=== PATIENT | male | born 1945 | race Caucasian/White ===

== ENCOUNTER 2019-08-12 09:41 | Inpatient (IN) | payer OTHER ==
[~2019-08-12] VITALS: Ht 170.2 cm; Wt 80.5 kg
[2019-08-12] MEDS ORDERED: SODIUM CHLORIDE 0.9% 1,000 ML IV ONE ×2 (10:23)
[2019-08-12 11:26] LABS: Basophils # (auto) 0.1 uL; Eosinophils # (auto) 0.1 uL; Lymphocytes # (auto) 0.6 uL; Monocytes # (auto) 0.6 uL; Neutrophils # (auto) 4.4 uL
[2019-08-12 11:29] LABS: Basophils % (auto) 1.2 % (0.0-2.0); Eosinophils % (auto) 1.4 % (0.0-7.0); Hematocrit 17.6 % (41.0-53.0); Lymphocytes % (auto) 10.5 % (10.0-50.0); Mean Corpuscular Hemoglobin 34.3 pg (28.0-32.0); Mean Corpuscular Hgb Conc. 33.9 g/dL (32.0-36.0); Mean Corpuscular Volume 101.3 fL (80.0-100.0); Monocytes % (auto) 10.8 % (0.0-12.0); Neutrophils % (auto) 76.1 % (37.0-80.0); Nucleated Red Blood Cells % 0.1 %; Platelet Count (auto) 239 10^3/uL (140-450); Red Blood Cells 1.74 10^6/uL (4.5-5.90); Red Cell Distribution Width 19.3 % (11.8-14.3); White Blood Cell 5.7 10^3/uL (4.4-10.8)
[2019-08-12] MEDS ORDERED: PIPERACILLIN-TAZOB 3.375GM 100 ML IV ONE (11:30)
[2019-08-12 11:44] LABS: Albumin 3.2 g/dL (3.4-5.0); Anion Gap 9 (5-15); Blood Urea Nitrogen 35 mg/dL (7-18); Calcium 8.8 mg/dL (8.5-10.1); Carbon Dioxide 24 mmol/L (21-32); Chloride 105 mmol/L (98-107); Glucose 91 mg/dL (74-106); Potassium 3.5 mmol/L (3.5-5.1); Sodium 138 mmol/L (136-145)
[2019-08-12 11:49] LABS: Alanine Aminotransferase 35 U/L (16-61); Alkaline Phosphatase 64 U/L (45-117); Aspartate Aminotransferase 245 U/L (15-37); BUN/Creatinine Ratio 21.9; GFR African American 55 mL/min; GFR Non-African American 46 mL/min; INR 1.15 (0.9-1.15); Partial Thromboplastin Time 25.5 sec (23.64-32.05); Total Protein 6.9 g/dL (6.4-8.2)
[2019-08-12 15:17] LABS: Urine Bacteria NONE SEEN /hpf (None Seen); Urine Blood 3+ /uL (Negative); Urine Mucus FEW (None Seen); Urine Specific Gravity 1.019 (1.001-1.035); Urine WBC 6 /hpf (0 - 3)
[2019-08-12] MEDS ORDERED: NITROGLYCERIN 0.4 MG SL TAB SL PRN (15:45)
[2019-08-12] MEDS ORDERED: SODIUM CHLORIDE 0.9% 2,000 ML IV ONE (15:45)
[2019-08-12] MEDS ORDERED: hydrALAZINE HCL 20 MG/ML VL IV PRN (15:45)
[2019-08-12] MEDS ORDERED: PROMETHAZINE HCL 25 MG/ML 1ML IV PRN (15:45)
[2019-08-12] MEDS ORDERED: MORPHINE SULF INJ 2 MG/ML SYRINGE 1ML IV PRN (15:45)
[2019-08-12 17:01] LABS: Phosphorus 4.6 mg/dL (2.5-4.90); Uric Acid 7.4 mg/dL (3.5-7.2)
[2019-08-12 17:03] LABS: Protein, Urine 148.8 mg/dL (0.0-11.9)
[2019-08-12 20:45] VITALS: BP 99/39
[2019-08-12 21:03] VITALS: BP 103/50
[2019-08-12 21:35] VITALS: BP 106/55
[2019-08-12 22:07] VITALS: BP 109/54
[2019-08-12] MEDS: metroNIDAZOLE 500MG/100ML 100 ML IV SCH (22:57)
[2019-08-12 23:25] LABS: Hematocrit 18.9 % (41.0-53.0)
[2019-08-12 23:51] LABS: Hemoglobin 6.4 g/dL (13.5-17.5)
[2019-08-13] VITALS (9 sets, daily range): BP systolic 96–123; BP diastolic 49–66
--- NOTE | 2019-08-13 01:40 | NUR ---
Admit to [facility] KACIEKIKO admitted to [facility] via gurney on monitor worker, and portable 02. Patient transferred to bed, connected to unit monitoring and oxygen, and weighed by bedscale, but bedscale is not functioning at this time. Patient oriented to Rubi Kaiser, primary RN, unit, room, bed, and unit policies regarding patient care and visiting hours. All questions and concerns addressed, patient verbalized understanding. Pt states has more information and can answer history questions in AM. Will continue to monitor.
--- NOTE | 2019-08-13 04:20 | NUR ---
PRBC transfusing. VS stable.
[2019-08-13] MEDS: MORPHINE SULF INJ 2 MG/ML SYRINGE 1ML IV PRN ×2 (04:24→21:22)
--- NOTE | 2019-08-13 04:35 | NUR ---
Blood transfusing. Pt tolerating well, no reactions at this time. VS stable.
--- NOTE | 2019-08-13 05:00 | NUR ---
SCD's applied. Pt states leg pain. Morphine 2mg IV given as ordered for prn pain. Will continue to monitor.
[2019-08-13] MEDS: metroNIDAZOLE 500MG/100ML 100 ML IV SCH ×3 (07:58→22:06)
[2019-08-13] MEDS ORDERED: SIMV-13 PO (08:20)
--- NOTE | 2019-08-13 08:30 | NUR ---
NEUROLOGIST DR. RAMSAY AT BEDSIDE. NO NEW ORDERS.
[2019-08-13 09:28] LABS: Basophils # (auto) 0 uL; Eosinophils # (auto) 0.1 uL; Lymphocytes # (auto) 0.6 uL; Monocytes # (auto) 0.4 uL; Monocytes % (auto) 10.6 % (0.0-12.0); Neutrophils # (auto) 2.7 uL; Nucleated Red Blood Cells % 0.1 %
[2019-08-13 09:32] LABS: Basophils % (auto) 1.3 % (0.0-2.0); Eosinophils % (auto) 2.1 % (0.0-7.0); Hematocrit 19.9 % (41.0-53.0); Lymphocytes % (auto) 16.4 % (10.0-50.0); Mean Corpuscular Hemoglobin 32.7 pg (28.0-32.0); Mean Corpuscular Hgb Conc. 34.1 g/dL (32.0-36.0); Mean Corpuscular Volume 96.1 fL (80.0-100.0); Neutrophils % (auto) 69.6 % (37.0-80.0); Platelet Count (auto) 209 10^3/uL (140-450); Red Blood Cells 2.07 10^6/uL (4.5-5.90); Red Cell Distribution Width 18.9 % (11.8-14.3); White Blood Cell 3.9 10^3/uL (4.4-10.8)
[2019-08-13 09:35] LABS: Hemoglobin 6.8 g/dL (13.5-17.5)
[2019-08-13 09:42] LABS: Albumin 2.8 g/dL (3.4-5.0); Calcium 8.2 mg/dL (8.5-10.1); Potassium 3.5 mmol/L (3.5-5.1)
[2019-08-13 09:45] LABS: BUN/Creatinine Ratio 20.6; Bilirubin, Total 2.5 mg/dL (0.2-1.0); Total Protein 6.2 g/dL (6.4-8.2)
--- NOTE | 2019-08-13 09:45 | NUR ---
ORTHOPEDIC DR. RAMSAY AT BEDSIDE. NO NEW ORDERS.
--- NOTE | 2019-08-13 09:50 | NUR ---
LSW AT BEDSIDE. DR. LUNA UPDATED ON PATIENTS STATUS. SEE NEW ORDERS. 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 MD AWARE OF HBG OF 6.8.
--- NOTE | 2019-08-13 09:51 | NUR ---
ACTIVITY PATIENT ASSISTED OOB TO CHAIR INDEPENDENTLY. AT BEDSIDE UPDATED ON PATIENT STATUS, QUESTIONS AND CONCERNS ADDRESSED.
[2019-08-13] MEDS: PANTOPRAZOLE 40 MG/10 ML VIAL INJ IV SCH (10:10)
[2019-08-13] MEDS: levoFLOXacin 500MG 100 ML IV SCH (10:10)
[2019-08-13] MEDS ORDERED: CELE100C82 PO (10:36)
--- NOTE | 2019-08-13 12:12 | NUR ---
SALES SERVICE PROFESSIONAL PAGED PAGED TO NOTIFY OF CURRENT HBG. AWAITING CALLBACK
--- NOTE | 2019-08-13 13:41 | NUR ---
ICE CHIPS TOLERATED PATIENT SITTING UP IN CHAIR, PATIENT ASKING IF HE CAN HAVE WATER OR ICE CHIPS. MD AGREED TO ICE CHIPS IF TOLERATED WELL. MD EXPLAINED POSSIBILITY OF ASPIRATION, PATIENT AND AT BEDSIDE VERBALIZED UNDERSTANDING. PATIENT ATE ICE WITHOUT DIFFICULT. WILL CONTINUE TO MONITOR WITH ASPIRATION PRECAUTIONS. SWALLOW EVAL PENDING.
--- NOTE | 2019-08-13 13:41 | NUR ---
MD ROUNDS DR. RAMSEY AT BEDSIDE. MD SPOKE TO PATIENT AND AT BEDSIDE. QUESTIONS AND CONCERNS ADDRESSED. SEE MD ORDERS. OK TO DOWNGRADE TO TELE IF OK WITH DR. ARIAS.
--- NOTE | 2019-08-13 14:00 | NUR ---
PLATE GRINDER GAURANG ALY AT BEDSIDE. PA UPDATED PATIENT AND AT BEDSIDE RE: PATIENTS STATUS, QUESTIONS AND CONCERNS ADDRESSED. CLARIFIED WITH PA OF HBG OF 6.8. PA STATED" IF PATIENT IS STABLE NO NEED FOR BLOOD AT THIS TIME". PT VSS, NO DISTRESS NOTED. DR. RAMSEY AWARE OF RESPONSE. PER P.A, OK TO DOWNGRADE TO TELE. PER PA OK TO TRY SIPS OF WATER, PT TOLERATED WATER. JELLO REQUESTED BY PATIENT AND AGAIN TOLERATED WELL. LIQUIDS TO BE GIVEN AT THIS TIME. PENDING HIDA/ MRCP IN A.M. PT TO BE NPO AFTER MIDNIGHT FOR PROCEDURES.
--- NOTE | 2019-08-13 14:33 | NUR ---
PATIENT AND PA ATTENDING REPORT PATIENT IS NOT HAVING DIFFICULTY SWALLOWING. ESOPHAGEAL MUSCLE DIFFICULTY BUT NOT SWALLOW. NO SWALLOW EVALUATION TOOK PLACE.
[2019-08-13] MEDS: SODIUM CHLORIDE 0.9% 1,000 ML IV SCH (15:10)
--- NOTE | 2019-08-13 17:24 | NUR ---
DOWNGRADE BED 285ATANNA Addendum: 08/13/19 at 1726 by Julisa Cheung RN UNABLE TO REACH NOK , NO ANSWER UNABLE TO LEAVE MSG.
--- NOTE | 2019-08-13 17:58 | NUR ---
REPORT SAIMA UPDATED ON PLAN OF CARE AND PATIENTS CURRENT CONDITION. RN AWARE PATIENT IS TO BE NPO AFTER MIDNIGHT. QUESTIONS AND CONCERNS ADDRESSED, PT TRANSFERRED VIA W/C ON TELE MONITOR. VSS.
--- NOTE | 2019-08-13 18:00 | NUR ---
Transfer from [facility] to telemetry Report received from [facility] RN Ghada. Patient arrived, no s/s of distress. Patient is ambulatory and went to the restroom independently and safely. Patient POC discussed with patient. Patient oriented to room and visiting hours. Bed is in lowest, locked position, call light within reach. BP 111/57, HR 75 and SR on tele monitor #54, RR 16, O2 97 %. Patient able to drink water and jello without swallowing difficulty. Patient is on clear liquid diet. Will continue to monitor.
--- NOTE | 2019-08-13 19:40 | NUR ---
Opening Shift Note Assumed care of patient, awake, AAOx4. No S/S of distress/SOB. On room air and bedrest. C/O chronic pain to bilateral legs 12/05. Pale skin tone noted. Patient asymptomatic. Bed in lowest locked position, side rails up x2, call light within reach. Instructed on POC and to call for assist PRN, will continue to monitor for changes Q1hr and PRN.
[2019-08-14] VITALS (8 sets, daily range): BP systolic 112–133; BP diastolic 57–74
--- NOTE | 2019-08-14 | NUR ---
PATIENT NPO SINCE MIDNIGHT FOR PROCEDURE THIS MORNING
[2019-08-14] MEDS: SODIUM CHLORIDE 0.9% 1,000 ML IV SCH ×2 (00:15→11:31)
[2019-08-14] MEDS: metroNIDAZOLE 500MG/100ML 100 ML IV SCH ×3 (06:09→20:31)
[2019-08-14 06:19] LABS: Potassium 3.5 mmol/L (3.5-5.1)
[2019-08-14 06:28] LABS: Albumin 2.7 g/dL (3.4-5.0); BUN/Creatinine Ratio 15.9; Bilirubin, Total 1.8 mg/dL (0.2-1.0); Calcium 7.8 mg/dL (8.5-10.1); Total Protein 5.9 g/dL (6.4-8.2)
--- NOTE | 2019-08-14 07:31 | NUR ---
Opening Shift Note Assumed care of patient, awake, AAOx4. No S/S of distress/SOB. On room air and bedrest. Pale skin tone noted. Patient asymptomatic. VS WNL Bed in lowest locked position, side rails up x2, call light within reach. Instructed on POC and to call for assist PRN, will continue to monitor for changes Q1hr and PRN.
--- NOTE | 2019-08-14 07:35 | NUR ---
CALLED PRE-OP RE: PT SCHEDULE FOR PROCEDURE. ACCORDING TO COREY CISSE, PT IS NOT ON THE SCEDULE FOR ANY PROCEDURE TODAY. WILL FOLLOW UP WITH
[2019-08-14] MEDS ORDERED: MORPHINE SULF INJ 2 MG/ML SYRINGE 1ML IV ONE (08:00)
[2019-08-14] MEDS ORDERED: READI-CAT 2 (BARIUM SULF)(VANILLA SMOOTHIE) 450ML ONE (09:23)
[2019-08-14] MEDS ORDERED: EZ PAQUE SUSP 12OZ BTL ONE (09:23)
[2019-08-14] MEDS ORDERED: BARIUM SULFATE 98% 340 GM PWDR ONE (09:25)
--- NOTE | 2019-08-14 09:37 | NUR ---
TECH AREA CONTACT ACCORDING TO X-RAY PERSONNEL PT WILL BE DOWN IN RADIOLOGY FOR THE HIDA SCAN, MRI PERSONNEL WILL THEN BRING HIM OVE FOR MRCP AND HE WILL FINSLLY GO BACK TO RADIOLOGY FOR BARIUM SWALLOW.
--- NOTE | 2019-08-14 09:39 | NUR ---
REPORT FROM GINNA CERTIFIED LACTATION COUNSELOR
[2019-08-14] MEDS: PANTOPRAZOLE 40 MG/10 ML VIAL INJ IV SCH (09:43)
[2019-08-14] MEDS: levoFLOXacin 500MG 100 ML IV SCH (10:00)
--- NOTE | 2019-08-14 10:25 | NUR ---
GEORGETTE [employer] PERSONNEL ACCORDING TO GEORGETTE PT IS UNABLE TO GO FOR MRCP TODAY DUE TO NUC MED SCAN PERFORMED EARLIER IN THE A.M DUE TO MORPHINE ADMINISTRATION. PT NEED TO NPO AFTER MIDNIGHT TONIGHT FOR MRCP TOMORROW.
[2019-08-14] MEDS ORDERED: GASTROGRAFIN 120 ML SOL ONE (10:31)
--- NOTE | 2019-08-14 11:00 | NUR ---
PT ARRIVAL BACK TO UNIT FROM RADIOLOGY
--- NOTE | 2019-08-14 13:27 | NUR ---
PT REPORTS THAT HE WALKS FINE AND DOES NOT NEED P.T.
[2019-08-14 13:33] LABS: Basophils # (auto) 0 uL; Basophils % (auto) 0.9 % (0.0-2.0); Eosinophils # (auto) 0.1 uL; Eosinophils % (auto) 2.5 % (0.0-7.0); Hematocrit 26.6 % (41.0-53.0); Hemoglobin 8.6 g/dL (13.5-17.5); Lymphocytes # (auto) 0.5 uL; Lymphocytes % (auto) 12.8 % (10.0-50.0); Mean Corpuscular Hemoglobin 32.7 pg (28.0-32.0); Mean Corpuscular Hgb Conc. 32.5 g/dL (32.0-36.0); Mean Corpuscular Volume 100.7 fL (80.0-100.0); Monocytes # (auto) 0.6 uL; Monocytes % (auto) 14.2 % (0.0-12.0); Neutrophils # (auto) 2.9 uL; Neutrophils % (auto) 69.6 % (37.0-80.0); Platelet Count (auto) 279 10^3/uL (140-450); Red Blood Cells 2.64 10^6/uL (4.5-5.90); White Blood Cell 4.1 10^3/uL (4.4-10.8)
--- NOTE | 2019-08-14 13:48 | NUR ---
ROUNDING MD GARCIA AT BEDSIDE. ACCORDING TO MD HE WILL NOT BE PERFORMING AND SURGERY AT THIS TIME DUE TO HGB LEVELS
[2019-08-14 13:55] LABS: Red Cell Distribution Width 20.1 % (11.8-14.3)
--- NOTE | 2019-08-14 16:50 | NUR ---
PAGED MD GARCIA RE: PT NEW H&H. PER HE WOULD LIKE HGB TO BE 10 AND ABOVE WITH A HCT OF 30 OR GREATER WELL IN ORDER TO PROCEED WITH SURGERY. WILL UPDATE MD RAMSEY
--- NOTE | 2019-08-14 17:04 | NUR ---
ROUNDING MD Irvin RAMSEY AT BEDSIDE. ALL QUESTIONS AND CONCERNS ADDRESSED AT THIS TIME. PER MD ARIAS AND BRAULOI PT IS OKAY TO HAVE 1UNIT OF PRBC'S AT THIS TIME WITH REPEAT H&H.
--- NOTE | 2019-08-14 19:55 | NUR ---
Opening Shift Note Assumed care of patient, awake and alert. No S/S of distress/SOB. pain to lower extremities 12/05 will medicate per protocol.. Instructed on POC and to call for assist PRN, will continue to monitor for changes Q1hr and PRN. bed in low position and call light within reach
[2019-08-14] MEDS: MORPHINE SULF INJ 2 MG/ML SYRINGE 1ML IV PRN (20:31)
--- NOTE | 2019-08-14 22:55 | NUR ---
15 MIN VS TAKEN PATIENT REPORTS NO ALLERGIC REACTION. PATIENT REPORTS NO PAIN/DISTRESS OR SOB
--- NOTE | 2019-08-14 23:34 | NUR ---
VS TAKEN PATIENT REPORTS NO ALLERGIC REACTION. PATIENT REPORTS NO PAIN/DISTRESS OR SOB/ VS TAKEN
[2019-08-15] VITALS (7 sets, daily range): BP systolic 103–126; BP diastolic 52–70
--- NOTE | 2019-08-15 | NUR ---
VS TAKEN PATIENT REPORTS NO ALLERGIC REACTION. PATIENT REPORTS NO PAIN/DISTRESS OR SOB. VS TAKEN
--- NOTE | 2019-08-15 | NUR ---
PATIENT EDUCATED ON NPO STATUS FOR MRI SCHEDULED
--- NOTE | 2019-08-15 02:00 | NUR ---
blood transfusion ended. patient tolerated well patient reports no pain/ distress or sob. vs taken
[2019-08-15] MEDS: metroNIDAZOLE 500MG/100ML 100 ML IV SCH ×3 (05:43→21:26)
--- NOTE | 2019-08-15 06:54 | NUR ---
PATIENT ROUNDS PATIENT IS IN SLEEPING SHOWS NO SIGNS OF SOB/DISTRESS OR PAIN. RR EVEN AND UNLABORED RR18.. BED IN LOW POSITION AND CALL LIGHT WITHIN REACH.
--- NOTE | 2019-08-15 06:58 | NUR ---
REPORT GIVEN TO DAYSHIFT RN PATIENT DENIES SOB/DISTRESS OR PAIN
[2019-08-15 07:09] LABS: Potassium 3.6 mmol/L (3.5-5.1)
[2019-08-15 07:17] LABS: Albumin 2.7 g/dL (3.4-5.0); BUN/Creatinine Ratio 12.9; Bilirubin, Total 1.2 mg/dL (0.2-1.0); Calcium 7.9 mg/dL (8.5-10.1); Phosphorus 4.2 mg/dL (2.5-4.90); Total Protein 5.8 g/dL (6.4-8.2)
[2019-08-15 07:18] LABS: Basophils # (auto) 0 uL; Basophils % (auto) 1.2 % (0.0-2.0); Eosinophils # (auto) 0.1 uL; Eosinophils % (auto) 3.9 % (0.0-7.0); Hematocrit 22.4 % (41.0-53.0); Hemoglobin 7.5 g/dL (13.5-17.5); Lymphocytes # (auto) 0.5 uL; Lymphocytes % (auto) 21.2 % (10.0-50.0); Mean Corpuscular Hemoglobin 33.2 pg (28.0-32.0); Mean Corpuscular Hgb Conc. 33.8 g/dL (32.0-36.0); Mean Corpuscular Volume 98.5 fL (80.0-100.0); Monocytes # (auto) 0.4 uL; Monocytes % (auto) 17.8 % (0.0-12.0); Neutrophils # (auto) 1.4 uL; Neutrophils % (auto) 55.9 % (37.0-80.0); Platelet Count (auto) 208 10^3/uL (140-450); Red Blood Cells 2.27 10^6/uL (4.5-5.90); Red Cell Distribution Width 18.8 % (11.8-14.3); White Blood Cell 2.4 10^3/uL (4.4-10.8)
--- NOTE | 2019-08-15 08:43 | NUR ---
PT BACK FROM STRESS LAB PT SITTING AT BEDSIDE IN RADIOLOGY WHEELCHAIR. WHEN ASKED IF PROCEDURE WAS DONE PT STATES " YEAH I JUST WANT TO GET INTO BED AND LAY DOWN RIGHT NOW AND I NEED A STRAW." PT TRANSFERRED TO BED BY PRIMARY RN. Addendum: 08/15/19 at 0956 by JAYCE MCKEON RN RN INCORRECT PATIENT
--- NOTE | 2019-08-15 08:45 | NUR ---
THIS RN CALLED DOWN TO STRESS LAB TO CONFIRM PROCEDURE SPOKE WITH MELINA. ACCORDING TO MELINA STRESS LAB PERSONNEL, PROCEDURE WAS INCOMPLETE DUE TO MEDICATION ADENOSINE NOT BEING AVAILABLE YET. MELINA STATES " I TOLD PATIENT THAT I WOULD BE BACK IN 15MIN SO THAT THE MEDICATION CAN BE READY, SO I LEFT IN COMFORTABLY IN THE WHEELCHAIR TO AWAIT THE MEDICATION." Addendum: 08/15/19 at 0956 by JAYCE MCKEON RN RN INCORRECT PATIENT
--- NOTE | 2019-08-15 09:42 | NUR ---
PT BROUGHT DOWN FOR MRCP
--- NOTE | 2019-08-15 10:09 | NUR ---
PT BACK TO UNIT FROM MRI
[2019-08-15] MEDS: levoFLOXacin 500MG 100 ML IV SCH (10:10)
[2019-08-15] MEDS: PANTOPRAZOLE 40 MG/10 ML VIAL INJ IV SCH (10:11)
--- NOTE | 2019-08-15 14:06 | NUR ---
NUTRITION ASSESSMENT NOTES Please refer to link notes of nutrition screen form filed under the intervention section of the plan of care for further details. Est. Energy Needs: 4122-8562 kcal (17-20 kcal/kgBW), Est. Protein Needs: 54-67 gms/day (0.8-1.0 gms/kg IBW). Will continue to monitor pertinent labs and reassess nutrient need prn Addendum: 08/15/19 at [address] Amended: Links added.
--- NOTE | 2019-08-15 16:26 | NUR ---
Assessment Pt is a 73 yr old alert and oriented male. Pt lives with his , Denia, who is his emergency contact at [phone]. Pt uses 02 PRN and has a walker but it currently ambulatory and independent with ADL's. Pt's Primary is Dr. Lomeli, has No AD, and receives [employer] income and a pension. Pt's will transport him home upon d/c. Pt will d/c home upon medical clearance. Pt is agreeable to d/c plan. No current needs assessed. Addendum: 08/15/19 at 1629 by KERA ROSS Amended: Links added.
--- NOTE | 2019-08-15 17:42 | NUR ---
MD Irvin GROSSMAN CALLED RE: UPDATE FOR PATIENT. UPDATED ON CURRENT STATUS. ALL QUESTIONS AND CONCERNS ADDRESSED AT THIS TIME
--- NOTE | 2019-08-15 19:55 | NUR ---
Opening Shift Note Assumed care of patient, awake and alert. No S/S of distress/SOB or pain. Instructed on POC and to call for assist PRN, will continue to monitor for changes Q1hr and PRN.
--- NOTE | 2019-08-15 19:55 | NUR ---
surgical consent not signed, surgeon has not talked to patient.
--- NOTE | 2019-08-15 20:25 | NUR ---
CALLED MD Rodolfo RAMSEY, SPOKE WITH LEGAL INSTRUCTOR DOCTOR JAM PROVIDED DOCTOR WITH SBAR REPORT AND INFORMED HIM OF PATIENT HGB 7.5, INFORMED JAM OF MD OLMSTEAD PROGRESS NOTE TO KEEP HGB ABOVE 10 AND HCT ABOVE 30 BEFORE SURGERY. PER DOCTOR GIVE 2 UNITS OF PRBC, FOLLOW UP WITH CBC POST TRANSFUSION, AND STRICT I/O, ORDER READ BACK AND VERIFIED.
--- NOTE | 2019-08-15 20:44 | NUR ---
SPOKED WITH MD RADER PROVIDED WITH SBAR REPORT READ MD PROGRESS NOTE TO HIM. INFORMED HIM IF HE WOULD LIKE ME TO PUT IN ORDER TO TRANSFUSE PATIENT, INFORMED MD OF HGB OF 7.5. PER MD TRANSFUSE ONE UNIT OF PRBC. ORDERS READ BACK AND VERIFIED BY .
[2019-08-15] MEDS: MORPHINE SULF INJ 2 MG/ML SYRINGE 1ML IV PRN (21:26)
[2019-08-15] MEDS: SODIUM CHLORIDE 0.9% 1,000 ML IV SCH (21:32)
--- NOTE | 2019-08-15 22:16 | NUR ---
MD Irvin RAMSEY ROUNDED ON PATIENT AND EXPLAINED POC. INFORMED MD Amaro SPOKE WITH JAM AND MD RADER PERTAINING TO HGB 7.5 AND ORDER RECEIVED FROM BOTH TO TRANSFUSE PRBC. ORDERS RECEIVED FOR HGB/HCT LAB STAT, BY MD Rodolfo RAMSEY, PER MD HE WILL CALL BACK IN AN HOUR TO SEE IF BLOOD TRANSFUSION IS REQUIRED DEPENDING OF HGB/HCT. ORDERS READ BACK AND VERIFIED
[2019-08-15 22:38] LABS: Hematocrit 23.7 % (41.0-53.0)
[2019-08-15 22:40] LABS: Hemoglobin 7.8 g/dL (13.5-17.5)
--- NOTE | 2019-08-15 22:51 | NUR ---
NO CALL FROM Rodolfo RAMSEY. CALLED , PRIMARY TEACHER JAM ANSWERED,SBAR REPORT GIVEN AND INFORMED HGB/HCT LAB VALUES AND LACTATE DEHYDROGENASE LEVELS. PER JAM ADMINISTER SOLUMEDROL 6O IV Q 8HRS INFORMED PATIENT IS ALLERGIC TO PREDNISONE. JAM STATED TO GIVE MEDICATION. TO GIVE 2 UNITS OF PRBC. ORDERS READ BACK AND VERIFIED
[2019-08-16] VITALS (12 sets, daily range): BP systolic 113–150; BP diastolic 57–79
--- NOTE | 2019-08-16 00:02 | NUR ---
SPOKE WITH PHARMACIST KRISH AT [facility]. PER PHARMACIST CAN NOT GIVE SOLUMEDROL IF PATIENT IS ALLERGIC TO PREDNISONE HE GETS EDEMATOUS AND SOB.
--- NOTE | 2019-08-16 00:51 | NUR ---
SPOKE WITH JAM PER MD HOLD MEDICATION SOLUMEDROL
--- NOTE | 2019-08-16 01:45 | NUR ---
SECOND ATTEMPT CALLING BLOOD BANK TO VERIFY IF PRBC ARE READY, NO ANSWER.
--- NOTE | 2019-08-16 03:09 | NUR ---
15MIN VS TAKEN. NO ALLERGIC REACTION NOTED OR REPORTED BY PATIENT. DENIES SOB/DISTRESS OR PAIN. PATIENT TOLERATING WELL.
--- NOTE | 2019-08-16 04:09 | NUR ---
VS TAKEN,PATIENT NANDA SOB/DISTRESS/ PAIN OR ALLERGIC REACTION. PATIENT TOLERATING WELL
--- NOTE | 2019-08-16 05:07 | NUR ---
VS TAKEN BLOOD TRANSFUSION ENDED. NO ALLERGIC REACTION NOTED. PATIENT DENIES DISTRESS SOB/ OR PAIN.
[2019-08-16] MEDS ORDERED: methylPREDNISolone SOD SUCC 125 MG/2 ML VL IV SCH (06:00)
[2019-08-16] MEDS: metroNIDAZOLE 500MG/100ML 100 ML IV SCH ×3 (06:00→22:31)
--- NOTE | 2019-08-16 06:16 | NUR ---
15 MIN VS TAKEN . NO ALLERGIC REACTION NOTED. PATIENT NANDA SOB/DISTRESS OR PAIN.
--- NOTE | 2019-08-16 07:00 | NUR ---
VS TAKEN PATIENT NANDA SOB/DISTRESS OR PAIN . NO ALLERGIC REACTION NOTED
[2019-08-16] MEDS: SODIUM CHLORIDE 0.9% 1,000 ML IV SCH (07:15)
--- NOTE | 2019-08-16 07:30 | NUR ---
Opening Shift Note Assumed care of patient, awake and alert. No S/S of distress/SOB or pain. Instructed on POC and to callfor assist PRN, will continue to monitor for changes Q1hr and PRN. NPO SINCE MIDNIGHT.
--- NOTE | 2019-08-16 08:14 | NUR ---
report given to dayshift rn patient denies sob/distress or pain. informed rn of patient currently running transfusion. patient denies sob/distress or pain
[2019-08-16] MEDS: PANTOPRAZOLE 40 MG/10 ML VIAL INJ IV SCH (10:52)
[2019-08-16] MEDS: levoFLOXacin 500MG 100 ML IV SCH (10:52)
--- NOTE | 2019-08-16 12:51 | NUR ---
1245 08/16/19 Received order to transfer to higher level of care. I called Dr. Rodolfo Maya [phone] to discuss the case-he stated patient needs cholecystectomy at higher level of care due to his PNH. I spoke with [employer]ICE Reconnaissance Crewmember Claudia regarding this order-she said to reach out to [facility], [facility], [facility], and [facility]. I faxed transfer order/clinical information to [facility].
--- NOTE | 2019-08-16 14:22 | NUR ---
I received a call from Patsy at [facility] Transfer Center [phone] option [phone] letting me know that they are at capacity, they have no beds available today-to check back tomorrow.
--- NOTE | 2019-08-16 14:58 | NUR ---
I called [facility] Transfer [facility] [phone] and spoke with Zya regarding the need to transfer this patient to higher level of care-provided him with contact information for Dr. Rodolfo Maya as well as the nurse's station. Faxed clinical information /order to [phone]. Per Zay, no available beds at this time.
--- NOTE | 2019-08-16 15:24 | NUR ---
1520 08/16/19 I called [facility] [phone] and spoke with Aruna in bed control, she said they have no beds available right now, but the accepting MD for today is Dr. Aguila [phone]-I forwarded this information to [employer] Claudia-she will let Dr. Rodolfo Maya know. Faxed transfer order/clinical information to [facility] [phone].
--- NOTE | 2019-08-16 15:54 | NUR ---
I spoke with CHOICE Supervisor [employer] Claudia, she provided me with [facility] auth number [id number].
--- NOTE | 2019-08-16 16:19 | NUR ---
Faxed transfer order/clinical information to [facility].
--- NOTE | 2019-08-16 16:41 | NUR ---
I called [facility] (spoke with Ave [phone]) and placed them on will call pending transfer to higher level of care ([facility] auth number from Claudia at [facility] is [id number]. I spoke with nurse Tamayo and updated her on the status of the transfer-I let her know that [facility] is on will call.
[2019-08-16 17:32] LABS: Hematocrit 29.9 % (41.0-53.0); Hemoglobin 9.9 g/dL (13.5-17.5)
--- NOTE | 2019-08-16 19:30 | NUR ---
CLOSING Patient awake and alert. No S/S of distress/SOB or pain. PT AND HIS ARE AWARE OF THE PLAN TO TRANSFER TO HIGHER LEVEL OF CARE.
[2019-08-16] MEDS: MORPHINE SULF INJ 2 MG/ML SYRINGE 1ML IV PRN (20:49)
[2019-08-17 05:00] VITALS: BP 114/69
[2019-08-17] MEDS: metroNIDAZOLE 500MG/100ML 100 ML IV SCH ×3 (06:10→21:57)
--- NOTE | 2019-08-17 07:35 | NUR ---
Opening Shift Note Assumed care of patient. Patient is awake and alert. No S/S of distress/SOB, no pain noted or reported. Instructed on POC and to call for assist PRN, patient verbalized understanding. Bed locked in lowest position, side rails up x2, call light within reach. Will continue to monitor for changes Q1hr and PRN.
[2019-08-17 09:00] VITALS: BP 112/88
--- NOTE | 2019-08-17 10:36 | NUR ---
I called [facility] Transfer Center and spoke with Ron, he said they have no tele beds available at this time. I called [facility] Transfer Center and spoke with Sierra, re-faxed clinical information/transfer order per her request-they will review it and let me know if they are able to accept this patient.
[2019-08-17] MEDS: SODIUM CHLORIDE 0.9% 1,000 ML IV SCH ×2 (10:45→20:45)
[2019-08-17] MEDS: PANTOPRAZOLE 40 MG/10 ML VIAL INJ IV SCH (10:57)
[2019-08-17] MEDS: levoFLOXacin 500MG 100 ML IV SCH (10:57)
--- NOTE | 2019-08-17 11:35 | NUR ---
DR. Irvin RAMSEY AT BEDSIDE Addendum: 08/17/19 at 1136 by Jodie Estrada RN CORRECT TIME WAS 1110
[2019-08-17 13:00] VITALS: BP 136/65
--- NOTE | 2019-08-17 13:15 | NUR ---
IV removal IV DC'd with clean sterile technique, catheter fully intact. Pressure dressing applied to site. Patient tolerated well. NOTE: IV LEAKING
--- NOTE | 2019-08-17 13:30 | NUR ---
IV insertion IV access obtained, via clean sterile technique by inserting 22 gauge catheter at left hand after 1 attempt. IV secured properly. No trauma to site. Patient tolerated well.
--- NOTE | 2019-08-17 13:59 | NUR ---
I received a call from Alivia at [facility] transfer center letting me know that they have no beds available at this time.
--- NOTE | 2019-08-17 14:17 | NUR ---
1415 08/17/19 Contacted [facility] Transfer Center [phone] and spoke with Flaquito regarding the need to transfer to higher level of care. Provided him with contact information for Dr. Rodolfo Maya as well as the nurse's station. Faxed requested clinical documentation to [phone].
--- NOTE | 2019-08-17 14:30 | NUR ---
1430 08/17/19 I contacted the [facility] ([phone]) and spoke with Kiya Leiva regarding the need to transfer this patient to higher level of care. Per Kiya Leiva, they are at capacity and not able to accept any transfers at this time-she said to try back tomorrow.
--- NOTE | 2019-08-17 16:26 | NUR ---
1620 08/17/19 I received a message from Sierra at the [facility] Transfer Center letting me know that their surgeon Dr. Noguera is not accepting patient at this time-that patient can follow up with them as an outpatient.
[2019-08-17 17:08] VITALS: BP 141/75
--- NOTE | 2019-08-17 18:02 | NUR ---
RECEIVED A MESSAGE TO CONTACT EDIL WITH [facility] TRANSFER [facility] AT [phone]. LEFT MESSAGE FOR EDIL TO RETURN CALL.
--- NOTE | 2019-08-17 20:06 | NUR ---
RECEIVED PATIENT FROM DAY SHIFT RN. PATIENT RESTING IN BED. NO S/S OF DISTRESS NOTED. C/O PAIN @ 12/05. NO REQUEST FOR PAIN MEDICATION NOW. PATIENT UNDERSTOOD THE SCHEDULE OF PAIN MANAGEMENT, WILL CALL IF NEEDED. BED IN LOWEST POSITION WITH SIDE RAILS UP X 2. CALL GOMEZ WITHIN REACH. ALARM ON. CONTINUE TO MONITOR FOR CHANGES Q1H AND PRN.
[2019-08-17] MEDS: MORPHINE SULF INJ 2 MG/ML SYRINGE 1ML IV PRN (21:58)
--- NOTE | 2019-08-17 22:03 | NUR ---
MEDICATED PATIENT FOR PAIN @ 12/05 ORDERED. CONTINUE TO MONITOR.
[2019-08-18] MEDS: SODIUM CHLORIDE 0.9% 1,000 ML IV SCH ×2 (04:41→18:13)
[2019-08-18] MEDS: MORPHINE SULF INJ 2 MG/ML SYRINGE 1ML IV PRN ×2 (04:41→22:52)
[2019-08-18 05:00] VITALS: BP 132/69
[2019-08-18] MEDS: metroNIDAZOLE 500MG/100ML 100 ML IV SCH ×3 (06:01→22:41)
[2019-08-18 06:45] LABS: Basophils # (auto) 0 uL; Basophils % (auto) 0.7 % (0.0-2.0); Eosinophils # (auto) 0.1 uL; Eosinophils % (auto) 3.8 % (0.0-7.0); Hematocrit 28.3 % (41.0-53.0); Hemoglobin 9.7 g/dL (13.5-17.5); Lymphocytes # (auto) 0.5 uL; Mean Corpuscular Hemoglobin 32.8 pg (28.0-32.0); Mean Corpuscular Hgb Conc. 34.2 g/dL (32.0-36.0); Mean Corpuscular Volume 95.9 fL (80.0-100.0); Monocytes # (auto) 0.5 uL; Monocytes % (auto) 16.2 % (0.0-12.0); Neutrophils # (auto) 1.7 uL; Neutrophils % (auto) 60.3 % (37.0-80.0); Nucleated Red Blood Cells % 0.2 %; Platelet Count (auto) 168 10^3/uL (140-450); Red Blood Cells 2.95 10^6/uL (4.5-5.90); Red Cell Distribution Width 17.3 % (11.8-14.3); White Blood Cell 2.9 10^3/uL (4.4-10.8)
[2019-08-18 06:57] LABS: Calcium 7.9 mg/dL (8.5-10.1); Potassium 3.3 mmol/L (3.5-5.1)
--- NOTE | 2019-08-18 08:00 | NUR ---
Opening Shift Note Assumed care of patient, awake, alert and oriented X4. No S/S of distress/SOB or pain. O2 @ 2 LPM via nasal cannula with sats @ 99%. Tele# 54, sinus rhythm @ 76 bpm. IV to left hand, 22 gauge, patent and infusing 0.9% NS @ 100 ml/hr. Instructed on POC and to call for assist PRN, verbalized understanding. Bed locked, in lowest position, call light within reach, will continue to monitor for changes Q1hr and PRN.
--- NOTE | 2019-08-18 08:43 | NUR ---
I called [facility] Transfer Center [phone] and spoke with Karina, no beds available at this time.
--- NOTE | 2019-08-18 08:53 | NUR ---
I called the [facility] ([facility])[phone] and spoke with Eryn, provided her with contact information for Dr. Rodolfo Maya as well as the nurse's station. Faxed her requested clinical documentation, she will work on getting the MD's to connect-she will call me back to let me know if they are willing to accept this patient.
[2019-08-18 09:00] VITALS: BP 126/73
--- NOTE | 2019-08-18 09:00 | NUR ---
I called [facility] transfer center [phone] and left message asking about bed availability.
--- NOTE | 2019-08-18 09:13 | NUR ---
I called the [facility] Transfer Center [phone] and spoke with Alivia-she referred me to the automated transfer request line-provided contact information for Dr. Rodolfo Maya as well as the nurse's station. Faxed requested face sheet to [phone].
--- NOTE | 2019-08-18 09:20 | NUR ---
I called [facility] [phone] and left message for bed control asking about bed availability.
--- NOTE | 2019-08-18 09:56 | NUR ---
0950 08/18/19 I received a call from Eryn at the [facility] ([facility]) letting me know that they can not accept this patient because he needs a higher level of care than they can provide.
[2019-08-18] MEDS: levoFLOXacin 500MG 100 ML IV SCH (09:57)
[2019-08-18] MEDS: PANTOPRAZOLE 40 MG/10 ML VIAL INJ IV SCH (09:57)
[2019-08-18] MEDS ORDERED: POTASSIUM CHL 20MEQ/100ML 100 ML IV ONE (10:15)
[2019-08-18] MEDS ORDERED: POTASSIUM EFFERVESENT TAB 25 MEQ PO ONE (10:15)
--- NOTE | 2019-08-18 11:05 | NUR ---
Patient taken off O2, sats remaned @ 96-98% for 5 minutes. O2 removed.
--- NOTE | 2019-08-18 11:30 | NUR ---
3437 08/18/19 I received a call from Michele at [facility]-provided him with additional clinical information as requested-faxed clinical information per his request for [phone].
[2019-08-18 13:00] VITALS: BP 148/75
--- NOTE | 2019-08-18 13:40 | NUR ---
NUTRITION FOLLOWUP NOTES Pt wt is 82.8 kg today Pt was in restroom when rounded this morning with no relatives at bedside. Pt diet is advanced to Full Liquid Diet and his appetite is good aeb 100% x2 PO intake per RN doc. Pt with no noted distress per RN doc. Will monitor and followup prn Est. Energy Needs: 7054-4766 kcal (17-20 kcal/kgBW), Est. Protein Needs: 54-67 gms/day (0.8-1.0 gms/kg IBW). Will continue to monitor pertinent labs and reassess nutrient need prn LAB: POT 3.3 L, CL 111 H, CR 1.34 H, CA 7.9 L GI: Last BM noted on 08/18/19 per RN doc BS: 20 low risk, skin intact. Please refer to wound assessment report for further details PES: 1) Altered nutrition related lab values R/T current medical condition AEB low albumin, total protein, Calcium, and high Cr and AST Comments Will continue to monitor pertinent labs, skin status and weight trends. F/u in 2 days if on clear liquid or 3 to 5 days if diet Additional Recommendations: 1) Advance diet when medically appropriate upon TRANSPORTATION ASSISTANT evaluation 2) If Albumin continues trending down with improved renal labs, consider Prostat 1 pkt BID.
--- NOTE | 2019-08-18 14:09 | NUR ---
1400 08/18/19 I received a call from Kiya at the [facility] center, requesting additional clinical information to be faxed (US report, MRCP report, all surgeon's notes)-faxed as requested to [phone].
--- NOTE | 2019-08-18 14:52 | NUR ---
1450 08/18/19 I received a call from Jordyn at [facility] [phone] extension [phone] requesting insurance authorization for this transfer. I provided her with authorization number [id number] to me by [employer] Claudia. I also provided her with contact information for [employer].
--- NOTE | 2019-08-18 15:46 | NUR ---
1545 08/18/19 I received a call from Lee at the [facility] transfer center-provided him with my fax number-he will be faxing over a transfer back agreement that needs to be done before they can continued working on the transfer.
--- NOTE | 2019-08-18 16:43 | NUR ---
8507 08/18/19 I received a call from Lee at [facility] telling me that they are accepting this patient but do not have a bed available yet. Transfer back agreement faxed to them per their request-Dr. Rodolfo Maya is aware (per CHOICE Core Fitter Claudia) that [facility] may want to transfer patient back to us when surgery is completed.
--- NOTE | 2019-08-18 16:43 | NUR ---
I called [facility] ([phone]) and spoke with Vinayak, patient remains on will call pending transfer to higher level of care. I spoke with patient's nurse Soraya and updated her on the status of the transfer.
[2019-08-18 16:49] VITALS: BP 127/65
--- NOTE | 2019-08-18 19:29 | NUR ---
Care endorsed to TANNA Wagner, night nurse.
[2019-08-18 20:00] VITALS: BP 144/76
--- NOTE | 2019-08-18 20:00 | NUR ---
Opening Shift Note Assumed care of patient, awake and alert. No S/S of distress/SOB or pain. Instructed on POC and to call for assist PRN, will continue to monitor for changes Q1hr and PRN. Bed in low position. Call light in reach. Continue to wait for call back from hospitals contacted by [facility] for a transfer due to a need for a higher level of care.
[2019-08-18 23:18] VITALS: BP 144/76
[2019-08-19] MEDS: SODIUM CHLORIDE 0.9% 1,000 ML IV SCH ×3 (02:45→22:50)
--- NOTE | 2019-08-19 02:50 | NUR ---
Assumed care of patient from Kristy CISSE. Will continue to monitor patient Q1 and PRN. Bed is in lowest position, bed rails 2x, bed wheels locked. Bedside table and call light within reach.
[2019-08-19 05:45] VITALS: BP 133/64
[2019-08-19] MEDS: metroNIDAZOLE 500MG/100ML 100 ML IV SCH ×3 (06:35→22:50)
[2019-08-19] MEDS: MORPHINE SULF INJ 2 MG/ML SYRINGE 1ML IV PRN ×2 (06:52→23:40)
[2019-08-19 07:26] LABS: Basophils # (auto) 0 uL; Basophils % (auto) 0.6 % (0.0-2.0); Eosinophils # (auto) 0.1 uL; Hemoglobin 10.1 g/dL (13.5-17.5); Lymphocytes # (auto) 0.6 uL; Lymphocytes % (auto) 21.7 % (10.0-50.0); Mean Corpuscular Hemoglobin 32.5 pg (28.0-32.0); Mean Corpuscular Hgb Conc. 33.7 g/dL (32.0-36.0); Mean Corpuscular Volume 96.2 fL (80.0-100.0); Monocytes # (auto) 0.5 uL; Monocytes % (auto) 17.1 % (0.0-12.0); Neutrophils # (auto) 1.6 uL; Neutrophils % (auto) 56.6 % (37.0-80.0); Nucleated Red Blood Cells % 0.1 %; Platelet Count (auto) 157 10^3/uL (140-450); Red Blood Cells 3.12 10^6/uL (4.5-5.90); Red Cell Distribution Width 17.4 % (11.8-14.3); White Blood Cell 2.8 10^3/uL (4.4-10.8)
[2019-08-19 07:38] LABS: Potassium 3.4 mmol/L (3.5-5.1)
[2019-08-19 07:45] LABS: BUN/Creatinine Ratio 6.1; Calcium 8.2 mg/dL (8.5-10.1)
[2019-08-19 08:06] VITALS: BP 135/74
[2019-08-19] MEDS: levoFLOXacin 500MG 100 ML IV SCH (10:54)
[2019-08-19] MEDS: PANTOPRAZOLE 40 MG/10 ML VIAL INJ IV SCH (10:54)
[2019-08-19] MEDS ORDERED: POTASSIUM EFFERVESENT TAB 25 MEQ PO ONE (12:00)
--- NOTE | 2019-08-19 12:05 | NUR ---
PAGESanam SMITH IN CASE MANAGEMENT TO SEE IF BED AVAILABLE. I HAVE AN ORDER THAT PATIENT HAS BEEN ACCEPTED AT [facility] UNDER DR HOLT.
[2019-08-19 12:15] VITALS: BP 127/70
--- NOTE | 2019-08-19 12:20 | NUR ---
SPOKE TO SARAH IN CASE MANAGEMENT REGARDING A BED. SHE SAID [facility] WILL CALL ME WHEN A BED IS AVAILABLE.
--- NOTE | 2019-08-19 12:23 | NUR ---
FRANK FROM [facility] CALLED AND SAID SHE NEEDS A BACK TRANSFER AGREEMENT SIGNED BY OUR CREATIVE WRITING TEACHER. I GAVE HER OUR FAX NUMBER AND AWAITING FOR THE FORM.
--- NOTE | 2019-08-19 13:01 | NUR ---
SHWETHA COVARRUBIASFINISHER MAP AND CHART SIGNED TRANSFER BACK AGREEMENT AND FAXED BACK TO [facility] [phone]
--- NOTE | 2019-08-19 14:04 | NUR ---
I called [facility] Transfer Center [phone] and spoke with Michelle, there are no beds available at this time. I called the [facility] Transfer Center [phone] and spoke with Temitope, there are no beds available at this time.
[2019-08-19 16:46] VITALS: BP 123/76
--- NOTE | 2019-08-19 18:31 | NUR ---
CALLED FRANK CISSE AT [facility] TRANSFER [facility] TO REQUIRE ABOUT BED AVAILABILITY. SHE SAID NO BED AVAILABLE AT THIS TIME. SHE OR SOMEONE FROM THE TRANSFER CENTER WILL CALL US WHEN A BED AVAILABLE.
[2019-08-19 20:00] VITALS: BP 147/67
--- NOTE | 2019-08-19 20:40 | NUR ---
Patient complains of burning and discomfort to anus. Dr. Young notified of patient's status. New order obtained for Anusol.
[2019-08-19 22:25] VITALS: BP 147/67
[2019-08-20] VITALS (7 sets, daily range): BP systolic 114–161; BP diastolic 64–91
[2019-08-20] MEDS ORDERED: HYDROCORTISONE ACET 25 MG RECTAL SUPP PR ONE (02:45)
[2019-08-20] MEDS: metroNIDAZOLE 500MG/100ML 100 ML IV SCH ×3 (05:56→22:39)
--- NOTE | 2019-08-20 06:00 | NUR ---
Patient received Anusol Suppository rectally as ordered for burning to anus.
[2019-08-20 06:55] LABS: BUN/Creatinine Ratio 6.3; Calcium 8.3 mg/dL (8.5-10.1); Potassium 3.7 mmol/L (3.5-5.1)
--- NOTE | 2019-08-20 07:59 | NUR ---
RECEIVED CALL FROM [facility]SF[facility]. SPOKE WITH KATELYN, SHE STATES THEY NEED A DISCHARGE SUMMARY FAXED TO [phone] ONCE THEY RECEIVE THIS SHE WILL GIVE THE BED ASSIGNMENT. PATIENT SHOULD HAVE A BED TODAY. OPERATOR HELPER CASE MANAGEMENT SARAH LEWIS PAGED.
--- NOTE | 2019-08-20 08:00 | NUR ---
KATELYN FROM [facility] NUMBER [phone] OPTION 3
--- NOTE | 2019-08-20 08:08 | NUR ---
RECEIVED CALL FROM SARAH DUEÑAS AND NOTIFIED OF TRANSFER SERVICE CALL
[2019-08-20] MEDS: SODIUM CHLORIDE 0.9% 1,000 ML IV SCH ×2 (08:45→18:36)
[2019-08-20] MEDS: PANTOPRAZOLE 40 MG/10 ML VIAL INJ IV SCH (10:41)
[2019-08-20] MEDS: levoFLOXacin 500MG 100 ML IV SCH (10:41)
--- NOTE | 2019-08-20 10:45 | NUR ---
DISCHARGE SUMMARY FAXED BY CHANCE HAAS TO [phone]
[2019-08-20 10:46] LABS: Basophils # (auto) 0 uL; Basophils % (auto) 0.5 % (0.0-2.0); Eosinophils # (auto) 0.1 uL; Eosinophils % (auto) 2.4 % (0.0-7.0); Hematocrit 33.1 % (41.0-53.0); Hemoglobin 11.1 g/dL (13.5-17.5); Lymphocytes # (auto) 0.5 uL; Lymphocytes % (auto) 16.1 % (10.0-50.0); Mean Corpuscular Hemoglobin 32.2 pg (28.0-32.0); Mean Corpuscular Hgb Conc. 33.4 g/dL (32.0-36.0); Mean Corpuscular Volume 96.6 fL (80.0-100.0); Monocytes # (auto) 0.6 uL; Platelet Count (auto) 176 10^3/uL (140-450); Red Blood Cells 3.43 10^6/uL (4.5-5.90); Red Cell Distribution Width 17.3 % (11.8-14.3); White Blood Cell 3.2 10^3/uL (4.4-10.8)
--- NOTE | 2019-08-20 12:00 | NUR ---
ATTEMPTED TO CALL KATELYN FROM [facility] WITH NUMBER PROVIDED [phone] OPTION 3. NO ANSWER
--- NOTE | 2019-08-20 12:54 | NUR ---
I called [facility] Transfer center [phone] and spoke with Zay, he stated no beds available at this time. I called [facility] Transfer center ([phone]) and spoke with Kiya Leiva, she said there are no beds available at this time.
--- NOTE | 2019-08-20 17:17 | NUR ---
SPOKE TO KATELYN FROM [facility] PER KATELYN SHE DID NOT GET ANY FAX. I FAXED PAPER WORK X 2 ADDITIONAL TIMES [phone]. NO CALL BACK RECEIVED NO UPDATE OF THIS TIME.
--- NOTE | 2019-08-20 17:34 | NUR ---
CALLED [facility] AGAIN FOR UPDATE AND PER ANSWERING SERVICE THEY STILL DID NOT RECEIVE, I FAXED OVER [facility] WAS ON PHONE AND HE CONFIRMED HE RECEIVED THEM. PER THE GENTLEMEN AND KATELYN THEY WILL CALL [facility] AND SEE IF THERE IS A BED AVAILABLE. [employer] PHONE NUMBER PROVIDED. WILL AWAIT RETURN PHONE CALL.
--- NOTE | 2019-08-20 18:37 | NUR ---
Opening Shift Note Assumed care of patient, awake and alert. No S/S of distress/SOB or pain. Instructed on POC and to call for assist PRN, will continue to monitor for changes Q1hr and PRN. Bed locked in lowest position with two side rails up and call light in reach. Addendum: 08/20/19 at 1838 by Mei Kong RN wrong time input.
--- NOTE | 2019-08-20 18:37 | NUR ---
AT THIS TIME NO UPDATE FROM [facility].
--- NOTE | 2019-08-20 21:33 | NUR ---
Transfer center Received phone call from transfer center stating that there are no beds currently available at [facility]
[2019-08-20] MEDS: MORPHINE SULF INJ 2 MG/ML SYRINGE 1ML IV PRN (22:38)
[2019-08-21] MEDS: SODIUM CHLORIDE 0.9% 1,000 ML IV SCH ×2 (04:56→16:39)
[2019-08-21 06:00] VITALS: BP 142/67
[2019-08-21] MEDS: metroNIDAZOLE 500MG/100ML 100 ML IV SCH ×2 (06:31→14:24)
--- NOTE | 2019-08-21 07:45 | NUR ---
OPENING SHIFT NOTE: PATIENT RESTING IN BED, A/OX4 RESPIRATIONS EVEN AND UNLABORED. REPORTS HEADACHE 5/10 WILL ADMINISTER TYLENOL REQUESTED. UPDATED ON PLAN OF CARE. VERBALIZED UNDERSTANDING. CALL LIGHT WITHIN REACH. FALL PRECAUTIONS IN PLACE.
[2019-08-21] MEDS: MORPHINE SULF INJ 2 MG/ML SYRINGE 1ML IV PRN ×2 (08:07→14:23)
[2019-08-21 09:00] VITALS: BP 146/78
[2019-08-21] MEDS: PANTOPRAZOLE 40 MG/10 ML VIAL INJ IV SCH (09:04)
[2019-08-21] MEDS: levoFLOXacin 500MG 100 ML IV SCH (09:04)
--- NOTE | 2019-08-21 09:25 | NUR ---
9126 I called the [facility] Transfer Center [phone] and spoke with Michele-he said there are no beds available at this time. I called the [facility] Transfer Center [phone] and left message asking about bed availability. I spoke with CHOICE Yard Specialist Claudia who asked me to reach out to [facility] in [place].
--- NOTE | 2019-08-21 09:37 | NUR ---
PATIENT ON PHONE WITH SARAH LEWIS, PATIENT AGREEABLE TO TRANSFER TO [facility] IF BED ACCEPTED.
--- NOTE | 2019-08-21 10:02 | NUR ---
0950 08/21/19 I contacted [facility] Transfer [facility] ([facility])[phone] and spoke with Audrey, she will present this information to her supervisor ski production and she will let me know if they are able to accept this patient. I provided her with authorization number [id number] and contact information for CHOICE Chronograph Operator Claudia ([phone]). I spoke with patient regarding the status of the transfer and about the possibility of being transferred to [place]-he is agreeable with the plan of care.
--- NOTE | 2019-08-21 10:59 | NUR ---
1050 08/21/19 Received a call from Audrey at the [facility] ([facility]) letting me know that they will be able to accommodate this patient, she said they tried to call Dr. Rodolfo Maya for MD to MD and couldn't get a hold of him. She is requesting that Dr. Rodolfo Maya call her at the [facility] so she can connect him with their MD. I spoke with CHOICE Data Processing Auditor Claudia, she is forwarding information to Dr. Rodolfo Maya.
--- NOTE | 2019-08-21 11:25 | NUR ---
1120 08/21/19 I received a call from Audrey at the [facility] ([facility]) letting me know that Dr. Greco is accepting this patient, they are waiting for a bed assignment-faxed her updated clinical information as requested.
--- NOTE | 2019-08-21 12:50 | NUR ---
CALL FROM TANNA TURPIN AT [facility] REQUESTING CURRENT VITAL SIGNS AND PATIENT STATUS. INFORMED RN ON PLAN OF CARE, VERBALIZED UNDERSTANDING. BED ACCEPTANCE AT SUBMITTED HOSPITALS STILL PENDING AT THIS TIME.
[2019-08-21 12:53] VITALS: BP 138/76
--- NOTE | 2019-08-21 13:25 | NUR ---
BED ACCEPTANCE: CALL FROM [facility], PATIENT ACCEPTED TO [facility] ROOM [address] DR. MADSEN ACCEPTED PATIENT. CALL BACK NUMBER [phone]. REPORT TO BE CALLED TO [phone].
--- NOTE | 2019-08-21 13:53 | NUR ---
[facility] TRANSPORT: 1800 TECHNICIAN AUTOMATED EQUIPMENT TIME ARRANGED WITH [facility]. [phone]
[2019-08-21 17:00] VITALS: BP 154/84
--- NOTE | 2019-08-21 17:25 | NUR ---
CALL FROM [facility]: SPOKE WITH A POST ANESTHESIA NURSE ON THE PHONE, INFORMED THIS RN CHANGE OF SHIFT FOR [facility] EMPLOYEES IS AT 1800, AND CREW CAN BE AT THE HOSPITAL BETWEEN [phone].
--- NOTE | 2019-08-21 18:49 | NUR ---
DC: PATIENT DISCHARGED/TRANSFERRED TO [facility] IN [place]. ALL EDUCATION MATERIALS GIVEN TO PATIENT, AND TOOK MATERIALS, PATIENT VERBALIZED UNDERSTANDING. IV IN LEFT HAND IN PLACE FOR TRANSPORT. TELE RETURNED TO CARDIO UNIT. PATIENT VOIDED AND HAD A BM BEFORE LEAVING, NO C/O PAIN AT THIS TIME. PATIENT LEFT WITH ALL BELONGINGS WITH [facility] TRANSPORTATION. RESPIRATIONS EVEN AND UNLABORED.
== END 2019-08-21 18:50 | disposition short-term general hospital (02) | DRG 808 ==
LOC: ER 09:41 → TELE 09:42 → DOU IN ICU 08-13 01:40 → TELE-WESTW 08-13 18:06
PROVIDERS: ADMIT Internal Medicine; ATTEND Internal Medicine
PROC: 30233N1 Transfusion of Nonautologous Red Blood Cells into Peripheral Vein, Percutaneous Approach (ICD-10-PCS; principal; 2019-08-12)
DX: D59.5 Paroxysmal nocturnal hemoglobinuria [Marchiafava-Micheli] (principal); N17.0 Acute kidney failure with tubular necrosis; K81.0 Acute cholecystitis; K22.2 Esophageal obstruction; D58.9 Hereditary hemolytic anemia, unspecified; R80.9 Proteinuria, unspecified; M19.90 Unspecified osteoarthritis, unspecified site; I51.7 Cardiomegaly; R13.10 Dysphagia, unspecified; R31.9 Hematuria, unspecified; K81.9 Cholecystitis, unspecified; I71.4 Abdominal aortic aneurysm, without rupture; N18.3 Chronic kidney disease, stage 3 (moderate); J01.90 Acute sinusitis, unspecified; Z79.899 Other long term (current) drug therapy; Z88.8 Allergy status to other drugs, medicaments and biological substances
CPT/HCPCS: 36415; 70490; 71045; 74176; 74181; 74220; 76705; 76775; 78226; 80048; 80053; 81001; 82306; 82550; 82570; 83605; 83615; 83970; 84100; 84156; 84300; 84484; 84550; 85007; 85014; 85018; 85025; 85027; 85045; 85610; 85652; 85730; 86850; 86900; 86901; 86920; 87040; 87081; C9113; G0378; J1956; J2543; J3480; J3490

== ENCOUNTER 2020-06-27 11:48 | Inpatient (IN) | payer OTHER ==
[~2020-06-27] VITALS: Ht 182.9 cm; Wt 83.9 kg
[2020-06-27] VITALS (11 sets, daily range): BP systolic 81–132; BP diastolic 46–65
[~2020-06-27 11:48] MED LIST: CELE100C82 PO; SIMV-13 PO
[2020-06-27] MEDS ORDERED: cefTRIAXone 1GM/50ML D5W 50 ML IV ONE (12:00)
[2020-06-27] MEDS ORDERED: AZITHROMYCIN 500MG/ 250ML 250 ML IV ONE (12:00)
[2020-06-27] MEDS ORDERED: ETOMIDATE (2MG/ML) 20ML VIAL IV ONE ×2 (12:59→13:15)
[2020-06-27] MEDS ORDERED: SUCCINYLCHOLINE CHLORIDE 20 MG/ML 10ML VIAL IV ONE ×2 (13:00→13:15)
[2020-06-27] MEDS ORDERED: MIDAZOLAM DRIP 50 mg/50mL 50 ML IV ONE (13:06)
[2020-06-27] MEDS ORDERED: fentaNYL Drip 2500mCg/250mlNS 250 ML IV ONE (13:10)
[2020-06-27] MEDS: fentaNYL Drip 2500mCg/250mlNS 250 ML IV SCH (13:15)
[2020-06-27] MEDS: NOREPINEPHRINE 8 MG/250ML KIT 250 ML IV SCH (13:30)
[2020-06-27 14:20] LABS: Hematocrit 14.2 % (41.0-53.0); Mean Corpuscular Hemoglobin 36.4 pg (28.0-32.0); Mean Corpuscular Hgb Conc. 33.1 g/dL (32.0-36.0); Platelet Count (auto) 417 10^3/uL (140-450); Red Blood Cells 1.29 10^6/uL (4.5-5.90); White Blood Cell 20.6 10^3/uL (4.4-10.8)
[2020-06-27 14:25] LABS: Red Cell Distribution Width 21.3 % (11.8-14.3)
[2020-06-27 14:27] LABS: Hemoglobin 4.7 g/dL (13.5-17.5)
[2020-06-27 14:29] LABS: Basophils % (manual) 0 (0.0-2.0); Blast Cells 0; Eosinophils % (manual) 0 (0-7); Myelocytes % 0; Promyelocytes % 0; Reactive Lymphocytes 0
[2020-06-27] MEDS: MIDAZOLAM DRIP 50 mg/50mL 50 ML IV SCH (14:55)
[2020-06-27] MEDS ORDERED: DexAMETHasone SOD PHOS 10MG/1ML VIAL INJ IV ONE (15:30)
[2020-06-27] MEDS ORDERED: DexAMETHasone SOD PHOS 10MG/1ML VIAL INJ ONE (15:41)
[2020-06-27 17:13] LABS: Albumin 3.6 g/dL (3.4-5.0); Calcium 8.2 mg/dL (8.5-10.1); Potassium 4.9 mmol/L (3.5-5.1)
[2020-06-27 17:35] LABS: Bilirubin, Total 3.8 mg/dL (0.2-1.0); Total Protein 7.8 g/dL (6.4-8.2)
[2020-06-27 17:46] LABS: Urine Amorphous Crystal FEW /hpf (None Seen); Urine Bacteria NONE SEEN /hpf (None Seen); Urine Blood 1+ /uL (Negative); Urine Mucus FEW (None Seen); Urine WBC 6 /hpf (0 - 3)
[2020-06-27 18:14] LABS: CRP High Sensitivity 13.6 mg/dL (< 0.3)
[2020-06-27 18:50] LABS: Band Neutrophils % (manual) 5; Lymphocytes % (manual) 9 (10.0-50.0); Metamyelocytes % 3; Monocytes % (manual) 27 (0-12)
[2020-06-27] MEDS ORDERED: NITROGLYCERIN 0.4 MG SL TAB SL PRN (19:15)
[2020-06-27] MEDS ORDERED: SODIUM CHLORIDE 0.9% 1,000 ML IV SCH (19:15)
[2020-06-27] MEDS ORDERED: HEPARIN DRIP/D5W 100UNITS/ML 250 ML IV SCH (19:15)
[2020-06-27] MEDS ORDERED: MORPHINE SULF INJ 2 MG/ML SYRINGE 1ML IV PRN (19:15)
[2020-06-27 22:39] LABS: INR 1.29 (0.9-1.15); Partial Thromboplastin Time 35.7 sec (23.0-31.2)
[2020-06-28] VITALS (15 sets, daily range): BP systolic 99–111; BP diastolic 52–66
[2020-06-28 02:17] LABS: Mean Corpuscular Hgb Conc. 33.8 g/dL (32.0-36.0)
[2020-06-28 02:19] LABS: Mean Corpuscular Hemoglobin 31.6 pg (28.0-32.0); Mean Corpuscular Volume 93.5 fL (80.0-100.0); Platelet Count (auto) 441 10^3/uL (140-450); Red Blood Cells 2.04 10^6/uL (4.5-5.90); White Blood Cell 18.3 10^3/uL (4.4-10.8)
[2020-06-28 02:22] LABS: Red Cell Distribution Width 24.3 % (11.8-14.3)
[2020-06-28 02:25] LABS: Basophils % (manual) 0 (0.0-2.0); Blast Cells 0; Eosinophils % (manual) 0 (0-7); Hemoglobin 6.4 g/dL (13.5-17.5); Promyelocytes % 0; Reactive Lymphocytes 0
[2020-06-28 03:28] LABS: Band Neutrophils % (manual) 1; Lymphocytes % (manual) 10 (10.0-50.0); Metamyelocytes % 2; Monocytes % (manual) 9 (0-12); Myelocytes % 1
[2020-06-28] MEDS: fentaNYL Drip 2500mCg/250mlNS 250 ML IV SCH (08:00)
[2020-06-28 08:04] LABS: INR 1.19 (0.9-1.15); Partial Thromboplastin Time 34.2 sec (23.0-31.2)
[2020-06-28] MEDS ORDERED: HEPARIN SODIUM (PORCINE) 5000 UNITS/ML 1ML VIAL IV ONE (09:15)
[2020-06-28] MEDS ORDERED: DexAMETHasone SOD PHOS 10MG/1ML VIAL INJ IV SCH (10:00)
[2020-06-28 11:36] LABS: Creatinine, Urine 155 mg/dL (30.0-125.0); Sodium Urine 5 mmol/L (40-220)
[2020-06-28 13:07] LABS: Hematocrit 26.3 % (41.0-53.0); Hemoglobin 8.9 g/dL (13.5-17.5); Mean Corpuscular Hemoglobin 30.6 pg (28.0-32.0); Mean Corpuscular Hgb Conc. 33.9 g/dL (32.0-36.0); Mean Corpuscular Volume 90.3 fL (80.0-100.0); Platelet Count (auto) 420 10^3/uL (140-450); Red Blood Cells 2.92 10^6/uL (4.5-5.90)
[2020-06-28 13:11] LABS: Basophils % (manual) 0 (0.0-2.0); Blast Cells 0; Eosinophils % (manual) 0 (0-7); Reactive Lymphocytes 0
[2020-06-28] MEDS: SODIUM BICARBONATE 50ML VIAL 75 ML in SOD CHL 0.45% 1,000 ML IV SCH ×2 (13:20→21:29)
[2020-06-28] MEDS: NOREPINEPHRINE 8 MG/250ML KIT 250 ML IV SCH ×3 (13:21→23:57)
[2020-06-28 13:58] LABS: Band Neutrophils % (manual) 10; Lymphocytes % (manual) 6 (10.0-50.0); Metamyelocytes % 1; Monocytes % (manual) 11 (0-12); Myelocytes % 3; Promyelocytes % 1
[2020-06-28] MEDS ORDERED: DexAMETHasone SOD PHOS 4 MG/1ML SDV INJ IV SCH (14:00)
[2020-06-28 14:08] LABS: Albumin 3.3 g/dL (3.4-5.0); BUN/Creatinine Ratio 27.8; Calcium 7.5 mg/dL (8.5-10.1); Magnesium 2.4 mg/dL (1.6-2.6)
[2020-06-28] MEDS: DOXYCYCLINE 100MG/250ML 250 ML IV SCH (14:09)
[2020-06-28 14:10] LABS: Bilirubin, Total 1.7 mg/dL (0.2-1.0); Total Protein 7.2 g/dL (6.4-8.2)
[2020-06-28] MEDS ORDERED: SODIUM CHL 0.9% IV ONE ×2 (14:30→16:30)
[2020-06-28] MEDS ORDERED: DEXAMETHASONE IV ONE ×2 (14:30→16:30)
[2020-06-28] MEDS: MIDAZOLAM DRIP 50 mg/50mL 50 ML IV SCH (17:16)
[2020-06-28] MEDS: ATORVASTATIN 20 MG TAB PO SCH ×2 (21:29→22:00)
[2020-06-28] MEDS: PANTOPRAZOLE 40 MG/10 ML VIAL INJ IV SCH (21:29)
[2020-06-28 21:30] LABS: Hematocrit 27.9 % (41.0-53.0)
[2020-06-28 21:32] LABS: Hemoglobin 9.5 g/dL (13.5-17.5); Mean Corpuscular Hemoglobin 30.8 pg (28.0-32.0); Mean Corpuscular Hgb Conc. 34.1 g/dL (32.0-36.0); Mean Corpuscular Volume 90.2 fL (80.0-100.0); Platelet Count (auto) 487 10^3/uL (140-450); White Blood Cell 24.6 10^3/uL (4.4-10.8)
[2020-06-28 21:36] LABS: Red Cell Distribution Width 20.1 % (11.8-14.3)
[2020-06-28 21:38] LABS: Basophils % (manual) 0 (0.0-2.0); Blast Cells 0; Eosinophils % (manual) 0 (0-7); Myelocytes % 0; Promyelocytes % 0; Reactive Lymphocytes 0
[2020-06-28 23:09] LABS: Band Neutrophils % (manual) 3; Lymphocytes % (manual) 8 (10.0-50.0); Metamyelocytes % 2; Monocytes % (manual) 3 (0-12)
[2020-06-29] MEDS: fentaNYL Drip 2500mCg/250mlNS 250 ML IV SCH (01:54)
[2020-06-29] MEDS: DOXYCYCLINE 100MG/250ML 250 ML IV SCH ×2 (01:56→12:56)
[2020-06-29] MEDS: SODIUM BICARBONATE 50ML VIAL 75 ML in SOD CHL 0.45% 1,000 ML IV SCH ×2 (04:45→17:52)
[2020-06-29] MEDS: ATORVASTATIN 20 MG TAB PO SCH ×2 (04:50→22:08)
[2020-06-29] MEDS: MIDAZOLAM DRIP 50 mg/50mL 50 ML IV SCH (06:06)
[2020-06-29] MEDS: NOREPINEPHRINE 8 MG/250ML KIT 250 ML IV SCH ×2 (06:43→21:34)
[2020-06-29 07:14] LABS: Hematocrit 26.4 % (41.0-53.0); Hemoglobin 9.1 g/dL (13.5-17.5); Mean Corpuscular Hemoglobin 30.7 pg (28.0-32.0); Mean Corpuscular Hgb Conc. 34.6 g/dL (32.0-36.0); Mean Corpuscular Volume 88.8 fL (80.0-100.0); Platelet Count (auto) 511 10^3/uL (140-450); Red Blood Cells 2.98 10^6/uL (4.5-5.90)
[2020-06-29 07:18] VITALS: BP 125/59
[2020-06-29 07:23] LABS: BUN/Creatinine Ratio 34.2; Calcium 7.2 mg/dL (8.5-10.1); Potassium 4.5 mmol/L (3.5-5.1); Red Cell Distribution Width 20.7 % (11.8-14.3)
[2020-06-29 07:24] LABS: Basophils % (manual) 0 (0.0-2.0); Blast Cells 0; Eosinophils % (manual) 0 (0-7); Myelocytes % 0; Promyelocytes % 0; Reactive Lymphocytes 0
[2020-06-29] MEDS ORDERED: DexAMETHasone SOD PHOS 4 MG/1ML SDV INJ IV SCH (10:00)
[2020-06-29] MEDS: PANTOPRAZOLE 40 MG/10 ML VIAL INJ IV SCH ×2 (10:09→21:50)
[2020-06-29 10:43] VITALS: BP 130/59
[2020-06-29 12:28] LABS: Hemoglobin 9.3 g/dL (13.5-17.5)
[2020-06-29 12:32] LABS: Hematocrit 27.2 % (41.0-53.0); Mean Corpuscular Hemoglobin 30.6 pg (28.0-32.0); Mean Corpuscular Hgb Conc. 34.3 g/dL (32.0-36.0); Mean Corpuscular Volume 89.4 fL (80.0-100.0); Platelet Count (auto) 524 10^3/uL (140-450); Red Blood Cells 3.04 10^6/uL (4.5-5.90); White Blood Cell 16.7 10^3/uL (4.4-10.8)
[2020-06-29 12:44] LABS: Basophils % (manual) 0 (0.0-2.0); Blast Cells 0; Eosinophils % (manual) 0 (0-7); Promyelocytes % 0; Reactive Lymphocytes 0
[2020-06-29 13:07] LABS: Band Neutrophils % (manual) 11; Lymphocytes % (manual) 4 (10.0-50.0); Metamyelocytes % 3; Monocytes % (manual) 7 (0-12)
[2020-06-29 14:45] LABS: Band Neutrophils % (manual) 6; Lymphocytes % (manual) 7 (10.0-50.0); Metamyelocytes % 1; Monocytes % (manual) 5 (0-12); Myelocytes % 1
[2020-06-29 15:09] VITALS: BP 132/60
[2020-06-29 18:30] VITALS: BP 146/61
[2020-06-29] MEDS: cefTRIAXone 1GM/50ML D5W 50 ML IV SCH (19:16)
[2020-06-29 19:24] LABS: Basophils # (auto) 0 10 ^3/uL (0-0.2); Basophils % (auto) 0.1 % (0.0-2.0); Eosinophils # (auto) 0 10 ^3/uL (0-0.8); Hemoglobin 9.8 g/dL (13.5-17.5); Red Blood Cells 3.24 10^6/uL (4.5-5.90); White Blood Cell 14.5 10^3/uL (4.4-10.8)
[2020-06-29 19:25] LABS: Hematocrit 29.1 % (41.0-53.0); Lymphocytes # (auto) 0.4 10 ^3/uL (0.4-5.4); Lymphocytes % (auto) 2.4 % (10.0-50.0); Mean Corpuscular Hemoglobin 30.4 pg (28.0-32.0); Mean Corpuscular Hgb Conc. 33.8 g/dL (32.0-36.0); Mean Corpuscular Volume 89.8 fL (80.0-100.0); Monocytes # (auto) 0.9 10 ^3/uL (0-1.3); Neutrophils # (auto) 13.3 10 ^3/uL (1.6-8.6); Neutrophils % (auto) 91.5 % (37.0-80.0); Nucleated Red Blood Cells % 1.3 %; Platelet Count (auto) 521 10^3/uL (140-450)
[2020-06-29 19:51] LABS: Red Cell Distribution Width 20.2 % (11.8-14.3)
[2020-06-29] MEDS: DexAMETHasone SOD PHOS 10MG/1ML VIAL INJ IV SCH (22:08)
[2020-06-29 22:20] VITALS: BP 142/64
[2020-06-30 01:11] LABS: Basophils # (auto) 0 10 ^3/uL (0-0.2); Eosinophils # (auto) 0 10 ^3/uL (0-0.8); Nucleated Red Blood Cells % 1.1 %
[2020-06-30 01:12] LABS: Basophils % (auto) 0.1 % (0.0-2.0); Hemoglobin 9.7 g/dL (13.5-17.5); Lymphocytes # (auto) 0.4 10 ^3/uL (0.4-5.4); Lymphocytes % (auto) 2.4 % (10.0-50.0); Mean Corpuscular Hemoglobin 30.5 pg (28.0-32.0); Mean Corpuscular Hgb Conc. 33.6 g/dL (32.0-36.0); Mean Corpuscular Volume 90.7 fL (80.0-100.0); Monocytes # (auto) 1.2 10 ^3/uL (0-1.3); Neutrophils # (auto) 12.9 10 ^3/uL (1.6-8.6); Neutrophils % (auto) 89.5 % (37.0-80.0); Platelet Count (auto) 512 10^3/uL (140-450); Red Blood Cells 3.19 10^6/uL (4.5-5.90); White Blood Cell 14.5 10^3/uL (4.4-10.8)
[2020-06-30 01:13] LABS: Red Cell Distribution Width 20.7 % (11.8-14.3)
[2020-06-30 02:05] VITALS: BP 141/62
[2020-06-30] MEDS: DOXYCYCLINE 100MG/250ML 250 ML IV SCH ×2 (02:05→14:57)
[2020-06-30] MEDS: NOREPINEPHRINE 8 MG/250ML KIT 250 ML IV SCH (05:26)
[2020-06-30 06:15] VITALS: BP 141/62
[2020-06-30 06:40] LABS: Potassium 4.2 mmol/L (3.5-5.1)
[2020-06-30 06:43] LABS: BUN/Creatinine Ratio 39.4
[2020-06-30] MEDS: cefTRIAXone 1GM/50ML D5W 50 ML IV SCH (08:13)
[2020-06-30 10:00] VITALS: BP 98/54
[2020-06-30] MEDS: PANTOPRAZOLE 40 MG/10 ML VIAL INJ IV SCH ×2 (10:00→22:00)
[2020-06-30] MEDS: AZITHROMYCIN 500MG/ 250ML 250 ML IV SCH (10:57)
[2020-06-30] MEDS: DexAMETHasone SOD PHOS 10MG/1ML VIAL INJ IV SCH ×2 (10:57→22:00)
[2020-06-30] MEDS: fentaNYL Drip 2500mCg/250mlNS 250 ML IV SCH (13:16)
[2020-06-30 14:00] VITALS: BP 101/56
[2020-06-30] MEDS: PROPOFOL 100 ML IV SCH (14:53)
[2020-06-30] MEDS: SODIUM BICARBONATE 50ML VIAL 75 ML in SOD CHL 0.45% 1,000 ML IV SCH (14:54)
[2020-06-30 18:14] VITALS: BP 101/54
[2020-06-30] MEDS ORDERED: SODIUM CHLORIDE 0.9% 1,000 ML IV ONE (20:45)
[2020-06-30] MEDS: ATORVASTATIN 20 MG TAB PO SCH (22:00)
[2020-06-30 22:15] VITALS: BP 110/56
[2020-07-01 00:02] LABS: BUN/Creatinine Ratio 42.3; Calcium 7.5 mg/dL (8.5-10.1); Potassium 4.2 mmol/L (3.5-5.1)
[2020-07-01 02:25] VITALS: BP 108/55
[2020-07-01] MEDS: DOXYCYCLINE 100MG/250ML 250 ML IV SCH ×2 (02:25→14:02)
[2020-07-01 06:31] VITALS: BP 109/56
[2020-07-01] MEDS ORDERED: DOPamine 1600MCG/ML D5W 250 ML IV ONE (07:09)
[2020-07-01] MEDS ORDERED: DOPamine 1600MCG/ML D5W 250 ML IV SCH (07:15)
[2020-07-01] MEDS: NOREPINEPHRINE 8 MG/250ML KIT 250 ML IV SCH (07:30)
[2020-07-01] MEDS: DOPamine 1600MCG/ML D5W 250 ML IV SCH ×2 (07:30→22:12)
[2020-07-01 07:40] LABS: Potassium 4.1 mmol/L (3.5-5.1)
[2020-07-01 07:45] LABS: Albumin 2.7 g/dL (3.4-5.0); BUN/Creatinine Ratio 44.6; Bilirubin, Total 1.3 mg/dL (0.2-1.0); Calcium 7.8 mg/dL (8.5-10.1); Total Protein 5.6 g/dL (6.4-8.2)
[2020-07-01] MEDS: cefTRIAXone 1GM/50ML D5W 50 ML IV SCH (07:53)
[2020-07-01] MEDS: AZITHROMYCIN 500MG/ 250ML 250 ML IV SCH (07:53)
[2020-07-01] MEDS: PANTOPRAZOLE 40 MG/10 ML VIAL INJ IV SCH ×2 (07:53→22:00)
[2020-07-01] MEDS: DexAMETHasone SOD PHOS 10MG/1ML VIAL INJ IV SCH ×2 (07:53→22:00)
[2020-07-01 08:08] LABS: Basophils # (auto) 0 10 ^3/uL (0-0.2); Eosinophils # (auto) 0 10 ^3/uL (0-0.8); Hemoglobin 8.2 g/dL (13.5-17.5); Lymphocytes # (auto) 0.3 10 ^3/uL (0.4-5.4); Monocytes # (auto) 0.9 10 ^3/uL (0-1.3)
[2020-07-01 08:10] LABS: Hematocrit 23.5 % (41.0-53.0); Lymphocytes % (auto) 3.1 % (10.0-50.0); Mean Corpuscular Hemoglobin 31.7 pg (28.0-32.0); Mean Corpuscular Volume 90.5 fL (80.0-100.0); Monocytes % (auto) 9.5 % (0.0-12.0); Neutrophils # (auto) 8.4 10 ^3/uL (1.6-8.6); Neutrophils % (auto) 87.4 % (37.0-80.0); Nucleated Red Blood Cells % 0.7 %; Platelet Count (auto) 277 10^3/uL (140-450); Red Cell Distribution Width 20.9 % (11.8-14.3); White Blood Cell 9.6 10^3/uL (4.4-10.8)
[2020-07-01] MEDS: SODIUM BICARBONATE 50ML VIAL 75 ML in SOD CHL 0.45% 1,000 ML IV SCH (12:17)
[2020-07-01] MEDS: fentaNYL Drip 2500mCg/250mlNS 250 ML IV SCH (13:41)
[2020-07-01] MEDS: PROPOFOL 100 ML IV SCH (13:41)
[2020-07-01 14:14] LABS: Creatinine, Urine 64 mg/dL (30.0-125.0); Sodium Urine 14 mmol/L (40-220)
[2020-07-01 14:42] VITALS: BP 104/56
[2020-07-01 18:25] VITALS: BP 101/57
[2020-07-01] MEDS: ALBUTEROL SULF 2.5 MG/0.5ML(0.5%) NEB SOLN NEB SCH ×2 (18:25→22:15)
[2020-07-01] MEDS: ATORVASTATIN 20 MG TAB PO SCH (22:00)
[2020-07-01 22:15] VITALS: BP 117/58
[2020-07-01] MEDS: ACETYLCYSTEINE 20%(200MG/ML) SOL 4ML NEB SCH (22:15)
[2020-07-02] MEDS: DOXYCYCLINE 100MG/250ML 250 ML IV SCH ×2 (02:01→14:18)
[2020-07-02 02:19] VITALS: BP 114/57
[2020-07-02] MEDS: ALBUTEROL SULF 2.5 MG/0.5ML(0.5%) NEB SOLN NEB SCH ×5 (02:19→21:36)
[2020-07-02] MEDS ORDERED: SODIUM BICARBONATE 8.4 % INJ 50ML VIAL IV ONE (03:42)
[2020-07-02] MEDS: ACETYLCYSTEINE 20%(200MG/ML) SOL 4ML NEB SCH ×3 (06:00→21:36)
[2020-07-02 07:08] LABS: Potassium 4.1 mmol/L (3.5-5.1)
[2020-07-02 07:12] VITALS: BP 124/60
[2020-07-02 07:13] LABS: BUN/Creatinine Ratio 37.7; Calcium 7.8 mg/dL (8.5-10.1)
[2020-07-02] MEDS: NOREPINEPHRINE 8 MG/250ML KIT 250 ML IV SCH ×2 (08:03→13:12)
[2020-07-02] MEDS: cefTRIAXone 1GM/50ML D5W 50 ML IV SCH (09:00)
[2020-07-02] MEDS: AZITHROMYCIN 500MG/ 250ML 250 ML IV SCH (10:00)
[2020-07-02] MEDS: PANTOPRAZOLE 40 MG/10 ML VIAL INJ IV SCH ×2 (10:00→22:31)
[2020-07-02] MEDS: DexAMETHasone SOD PHOS 10MG/1ML VIAL INJ IV SCH ×2 (10:12→22:31)
[2020-07-02 11:19] VITALS: BP 131/63
[2020-07-02] MEDS: DOPamine 1600MCG/ML D5W 250 ML IV SCH (12:54)
[2020-07-02] MEDS: PROPOFOL 100 ML IV SCH (13:15)
[2020-07-02] MEDS: fentaNYL Drip 2500mCg/250mlNS 250 ML IV SCH (13:15)
[2020-07-02 14:25] VITALS: BP 141/64
[2020-07-02 18:34] VITALS: BP 109/69
[2020-07-02 21:36] VITALS: BP 128/72
[2020-07-02] MEDS: ATORVASTATIN 20 MG TAB PO SCH (22:31)
[2020-07-03 01:30] VITALS: BP 141/68
[2020-07-03] MEDS: DOXYCYCLINE 100MG/250ML 250 ML IV SCH ×2 (01:51→14:00)
[2020-07-03] MEDS: DOPamine 1600MCG/ML D5W 250 ML IV SCH ×2 (04:00→10:55)
[2020-07-03 07:20] VITALS: BP 132/70
[2020-07-03] MEDS: ALBUTEROL SULF 2.5 MG/0.5ML(0.5%) NEB SOLN NEB SCH ×3 (07:20→22:12)
[2020-07-03] MEDS: ACETYLCYSTEINE 20%(200MG/ML) SOL 4ML NEB SCH ×3 (07:20→22:12)
[2020-07-03 07:38] LABS: Calcium 8.2 mg/dL (8.5-10.1); Potassium 4.8 mmol/L (3.5-5.1)
[2020-07-03 07:40] LABS: BUN/Creatinine Ratio 36.1
[2020-07-03] MEDS: fentaNYL Drip 2500mCg/250mlNS 250 ML IV SCH (08:37)
[2020-07-03] MEDS: cefTRIAXone 1GM/50ML D5W 50 ML IV SCH (09:57)
[2020-07-03] MEDS: DexAMETHasone SOD PHOS 10MG/1ML VIAL INJ IV SCH ×2 (09:58→22:41)
[2020-07-03] MEDS: PANTOPRAZOLE 40 MG/10 ML VIAL INJ IV SCH ×2 (09:58→22:00)
[2020-07-03] MEDS: AZITHROMYCIN 500MG/ 250ML 250 ML IV SCH (09:59)
[2020-07-03 11:35] VITALS: BP 135/70
[2020-07-03] MEDS: MIDAZOLAM DRIP 50 mg/50mL 50 ML IV SCH (12:40)
[2020-07-03] MEDS: PROPOFOL 100 ML IV SCH (13:15)
[2020-07-03 18:33] VITALS: BP 109/59
[2020-07-03 22:12] VITALS: BP 114/58
[2020-07-03] MEDS: ATORVASTATIN 20 MG TAB PO SCH (22:42)
[2020-07-04] VITALS (48 sets, daily range): BP systolic 102–182; BP diastolic 54–126
[2020-07-04] MEDS: fentaNYL Drip 2500mCg/250mlNS 250 ML IV SCH (03:57)
[2020-07-04] MEDS: DOXYCYCLINE 100MG/250ML 250 ML IV SCH ×2 (03:59→14:18)
[2020-07-04] MEDS: ACETYLCYSTEINE 20%(200MG/ML) SOL 4ML NEB SCH (06:00)
[2020-07-04] MEDS: ALBUTEROL SULF 2.5 MG/0.5ML(0.5%) NEB SOLN NEB SCH (06:00)
[2020-07-04 08:07] LABS: Albumin 2.8 g/dL (3.4-5.0); BUN/Creatinine Ratio 42.5; Bilirubin, Total 1.5 mg/dL (0.2-1.0); Calcium 8.4 mg/dL (8.5-10.1); Potassium 4.8 mmol/L (3.5-5.1)
[2020-07-04 08:08] LABS: Hematocrit 29.3 % (41.0-53.0); Hemoglobin 9.7 g/dL (13.5-17.5); Mean Corpuscular Hemoglobin 30.9 pg (28.0-32.0); Mean Corpuscular Hgb Conc. 33.2 g/dL (32.0-36.0); Mean Corpuscular Volume 92.9 fL (80.0-100.0); Platelet Count (auto) 125 10^3/uL (140-450); Red Blood Cells 3.15 10^6/uL (4.5-5.90); White Blood Cell 11.1 10^3/uL (4.4-10.8)
[2020-07-04 08:09] LABS: Red Cell Distribution Width 21.3 % (11.8-14.3)
[2020-07-04 08:11] LABS: Basophils % (manual) 0 (0.0-2.0); Blast Cells 0; Eosinophils % (manual) 0 (0-7); Metamyelocytes % 0; Myelocytes % 0; Promyelocytes % 0
[2020-07-04] MEDS: cefTRIAXone 1GM/50ML D5W 50 ML IV SCH (10:36)
[2020-07-04] MEDS: DexAMETHasone SOD PHOS 10MG/1ML VIAL INJ IV SCH ×2 (10:36→22:29)
[2020-07-04] MEDS: DOPamine 1600MCG/ML D5W 250 ML IV SCH ×2 (10:55→13:15)
[2020-07-04] MEDS: NOREPINEPHRINE 8 MG/250ML KIT 250 ML IV SCH (10:55)
[2020-07-04] MEDS: PANTOPRAZOLE 40 MG/10 ML VIAL INJ IV SCH (11:01)
[2020-07-04] MEDS: AZITHROMYCIN 500MG/ 250ML 250 ML IV SCH (11:27)
[2020-07-04 12:38] LABS: Band Neutrophils % (manual) 1; Lymphocytes % (manual) 3 (10.0-50.0); Monocytes % (manual) 15 (0-12); Reactive Lymphocytes 2
[2020-07-04] MEDS: PROPOFOL 100 ML IV SCH (14:15)
[2020-07-04] MEDS ORDERED: REMDESIVIR PER PHARMACY 0 ML IV SCH (18:30)
[2020-07-04] MEDS ORDERED: REMDESIVIR 200 MG in NS 210ml LOADING DOSE ADULT IV ONE (20:00)
[2020-07-04] MEDS ORDERED: hydrALAZINE HCL 20 MG/ML VL IV PRN (20:15)
[2020-07-04] MEDS: ATORVASTATIN 20 MG TAB PO SCH (20:36)
[2020-07-05] VITALS (43 sets, daily range): BP systolic 110–165; BP diastolic 41–74
[2020-07-05] MEDS: DOXYCYCLINE 100MG/250ML 250 ML IV SCH ×2 (04:49→16:27)
[2020-07-05 06:38] LABS: Hematocrit 23.7 % (41.0-53.0); Mean Corpuscular Hemoglobin 31.5 pg (28.0-32.0); Mean Corpuscular Volume 92.7 fL (80.0-100.0); Platelet Count (auto) 99 10^3/uL (140-450); Red Blood Cells 2.55 10^6/uL (4.5-5.90); White Blood Cell 6.7 10^3/uL (4.4-10.8)
[2020-07-05 06:42] LABS: Calcium 8.1 mg/dL (8.5-10.1); Potassium 4.1 mmol/L (3.5-5.1)
[2020-07-05 06:43] LABS: Red Cell Distribution Width 21.2 % (11.8-14.3)
[2020-07-05 06:45] LABS: Basophils % (manual) 0 (0.0-2.0); Blast Cells 0; Eosinophils % (manual) 0 (0-7); Metamyelocytes % 0; Myelocytes % 0; Promyelocytes % 0; Reactive Lymphocytes 0
[2020-07-05 06:48] LABS: Albumin 2.7 g/dL (3.4-5.0); BUN/Creatinine Ratio 42.7; Bilirubin, Total 1.6 mg/dL (0.2-1.0); Magnesium 1.9 mg/dL (1.6-2.6); Total Protein 5.6 g/dL (6.4-8.2)
[2020-07-05] MEDS: ALBUTEROL SULF 2.5 MG/0.5ML(0.5%) NEB SOLN NEB SCH ×2 (06:59→21:54)
[2020-07-05] MEDS: NOREPINEPHRINE 8 MG/250ML KIT 250 ML IV SCH (07:30)
[2020-07-05] MEDS: ACETYLCYSTEINE 20%(200MG/ML) SOL 4ML NEB SCH (07:32)
[2020-07-05 08:06] LABS: Band Neutrophils % (manual) 3; Lymphocytes % (manual) 13 (10.0-50.0); Monocytes % (manual) 19 (0-12)
[2020-07-05] MEDS: DexAMETHasone SOD PHOS 10MG/1ML VIAL INJ IV SCH ×2 (08:35→22:13)
[2020-07-05] MEDS: cefTRIAXone 1GM/50ML D5W 50 ML IV SCH (08:35)
[2020-07-05] MEDS: FAMOTIDINE (10MG/ML) 2ML VL IV SCH (08:35)
[2020-07-05] MEDS: AZITHROMYCIN 500MG/ 250ML 250 ML IV SCH (08:36)
[2020-07-05] MEDS: ZINC SULFATE 220mg CAP or TAB PO SCH (08:36)
[2020-07-05] MEDS: CHOLECALCIFEROL (VITD3) 2,000 UNIT CAP PO SCH (08:38)
[2020-07-05] MEDS: ASCORBIC ACID 500 MG TAB PO SCH (08:38)
[2020-07-05] MEDS: DOPamine 1600MCG/ML D5W 250 ML IV SCH (13:15)
[2020-07-05] MEDS: REMDESIVIR 100mg 100 MG in SODIUM CHL 0.9% 230 ML IV SCH (16:27)
[2020-07-05] MEDS: ATORVASTATIN 20 MG TAB PO SCH (22:13)
[2020-07-06] VITALS: BP 163/73
[2020-07-06] MEDS ORDERED: HYDROcodone-ACET 5/325MG TAB PO PRN (01:00)
[2020-07-06] MEDS: DOXYCYCLINE 100MG/250ML 250 ML IV SCH ×2 (01:35→14:11)
[2020-07-06] MEDS: ALBUTEROL SULF 2.5 MG/0.5ML(0.5%) NEB SOLN NEB SCH ×2 (06:40→23:10)
[2020-07-06 08:00] VITALS: BP 109/62
[2020-07-06 08:19] LABS: Albumin 2.9 g/dL (3.4-5.0); BUN/Creatinine Ratio 45.7; Bilirubin, Total 2.2 mg/dL (0.2-1.0); Calcium 8.1 mg/dL (8.5-10.1); Total Protein 5.8 g/dL (6.4-8.2)
[2020-07-06] MEDS: cefTRIAXone 1GM/50ML D5W 50 ML IV SCH (08:39)
[2020-07-06] MEDS: DexAMETHasone SOD PHOS 10MG/1ML VIAL INJ IV SCH (08:47)
[2020-07-06] MEDS: ZINC SULFATE 220mg CAP or TAB PO SCH (08:48)
[2020-07-06] MEDS: CHOLECALCIFEROL (VITD3) 2,000 UNIT CAP PO SCH (08:48)
[2020-07-06] MEDS: ASCORBIC ACID 500 MG TAB PO SCH (08:48)
[2020-07-06] MEDS: FAMOTIDINE (10MG/ML) 2ML VL IV SCH (10:42)
[2020-07-06] MEDS: AZITHROMYCIN 500MG/ 250ML 250 ML IV SCH (10:42)
[2020-07-06] MEDS: DOPamine 1600MCG/ML D5W 250 ML IV SCH (13:15)
[2020-07-06 16:00] VITALS: BP 140/74
[2020-07-06] MEDS: REMDESIVIR 100mg 100 MG in SODIUM CHL 0.9% 230 ML IV SCH (16:17)
[2020-07-06 18:39] VITALS: BP 139/77
[2020-07-06] MEDS: ATORVASTATIN 20 MG TAB PO SCH (22:24)
[2020-07-07] VITALS: BP 116/55
[2020-07-07] MEDS: DOXYCYCLINE 100MG/250ML 250 ML IV SCH ×2 (02:05→14:49)
[2020-07-07] MEDS: ALBUTEROL SULF 2.5 MG/0.5ML(0.5%) NEB SOLN NEB SCH (06:53)
[2020-07-07 08:00] VITALS: BP 107/62
[2020-07-07] MEDS: DexAMETHasone SOD PHOS 10MG/1ML VIAL INJ IV SCH (11:13)
[2020-07-07] MEDS: FAMOTIDINE (10MG/ML) 2ML VL IV SCH (11:13)
[2020-07-07] MEDS: ASCORBIC ACID 500 MG TAB PO SCH (11:14)
[2020-07-07] MEDS: CHOLECALCIFEROL (VITD3) 2,000 UNIT CAP PO SCH (11:14)
[2020-07-07] MEDS: ZINC SULFATE 220mg CAP or TAB PO SCH (11:14)
[2020-07-07 13:06] LABS: Hemoglobin 8.9 g/dL (13.5-17.5); Mean Corpuscular Hemoglobin 31.7 pg (28.0-32.0); Mean Corpuscular Hgb Conc. 34.2 g/dL (32.0-36.0); Mean Corpuscular Volume 92.7 fL (80.0-100.0); Platelet Count (auto) 86 10^3/uL (140-450); White Blood Cell 10.4 10^3/uL (4.4-10.8)
[2020-07-07 13:13] LABS: Red Cell Distribution Width 22.1 % (11.8-14.3)
[2020-07-07 13:14] LABS: Band Neutrophils % (manual) 0; Basophils % (manual) 0 (0.0-2.0); Blast Cells 0; Eosinophils % (manual) 0 (0-7); Metamyelocytes % 0; Myelocytes % 0; Promyelocytes % 0; Reactive Lymphocytes 0
[2020-07-07] MEDS: DOPamine 1600MCG/ML D5W 250 ML IV SCH (13:15)
[2020-07-07 13:30] LABS: Lymphocytes % (manual) 1 (10.0-50.0); Monocytes % (manual) 21 (0-12)
[2020-07-07] MEDS: ALBUTEROL SULF HFA 90MCG INH 200DOSE IN SCH ×2 (14:00→20:11)
[2020-07-07 16:11] VITALS: BP 141/71
[2020-07-07] MEDS: REMDESIVIR 100mg 100 MG in SODIUM CHL 0.9% 230 ML IV SCH (16:13)
[2020-07-07 16:16] LABS: Albumin 2.9 g/dL (3.4-5.0); BUN/Creatinine Ratio 34.9; Bilirubin, Total 2.5 mg/dL (0.2-1.0); CRP High Sensitivity 0.62 mg/dL (< 0.3); Calcium 7.8 mg/dL (8.5-10.1); Potassium 3.8 mmol/L (3.5-5.1); Total Protein 5.7 g/dL (6.4-8.2)
[2020-07-07] MEDS: ATORVASTATIN 20 MG TAB PO SCH (22:03)
[2020-07-08] VITALS: BP 129/43
[2020-07-08] MEDS: DOXYCYCLINE 100MG/250ML 250 ML IV SCH ×2 (01:42→14:32)
[2020-07-08] MEDS: ALBUTEROL SULF HFA 90MCG INH 200DOSE IN SCH ×2 (08:20→23:03)
[2020-07-08 08:51] LABS: Potassium 3.6 mmol/L (3.5-5.1)
[2020-07-08 09:07] LABS: Albumin 2.7 g/dL (3.4-5.0); BUN/Creatinine Ratio 30.8; Bilirubin, Total 2.3 mg/dL (0.2-1.0); Calcium 7.7 mg/dL (8.5-10.1)
[2020-07-08] MEDS: FAMOTIDINE (10MG/ML) 2ML VL IV SCH (11:33)
[2020-07-08] MEDS: DexAMETHasone SOD PHOS 10MG/1ML VIAL INJ IV SCH (11:33)
[2020-07-08] MEDS: ASCORBIC ACID 500 MG TAB PO SCH (11:34)
[2020-07-08] MEDS: CHOLECALCIFEROL (VITD3) 2,000 UNIT CAP PO SCH (11:34)
[2020-07-08] MEDS: ZINC SULFATE 220mg CAP or TAB PO SCH (11:34)
[2020-07-08] MEDS: DOPamine 1600MCG/ML D5W 250 ML IV SCH (13:15)
[2020-07-08] MEDS ORDERED: ALBUAER3 IN (15:19)
[2020-07-08] MEDS ORDERED: DOXY-286 PO (15:19)
[2020-07-08] MEDS: REMDESIVIR 100mg 100 MG in SODIUM CHL 0.9% 230 ML IV SCH (15:28)
[2020-07-08] MEDS: ATORVASTATIN 20 MG TAB PO SCH (22:53)
[2020-07-09] VITALS: BP 125/54
[2020-07-09] MEDS: DOXYCYCLINE 100MG/250ML 250 ML IV SCH ×2 (02:00→14:00)
[2020-07-09 08:00] VITALS: BP 104/50
[2020-07-09] MEDS: ALBUTEROL SULF HFA 90MCG INH 200DOSE IN SCH (08:33)
[2020-07-09] MEDS: ZINC SULFATE 220mg CAP or TAB PO SCH (10:34)
[2020-07-09] MEDS: DexAMETHasone SOD PHOS 10MG/1ML VIAL INJ IV SCH (10:34)
[2020-07-09] MEDS: ASCORBIC ACID 500 MG TAB PO SCH (10:34)
[2020-07-09] MEDS: FAMOTIDINE (10MG/ML) 2ML VL IV SCH (10:34)
[2020-07-09] MEDS: CHOLECALCIFEROL (VITD3) 2,000 UNIT CAP PO SCH (10:34)
== END 2020-07-09 15:35 | disposition home health service (06) | DRG 870 ==
LOC: ER 11:48 → EDBD 11:48 → OVERFLOW 11:49 → DOU IN ICU 07-04 10:16 → TELE-WESTW 07-05 14:25
PROVIDERS: ADMIT Internal Medicine; ATTEND Internal Medicine
PROC: 30233N1 Transfusion of Nonautologous Red Blood Cells into Peripheral Vein, Percutaneous Approach (ICD-10-PCS; principal; 2020-06-27)
PROC: 4A143B0 Monitoring of Venous Pressure, Central, Percutaneous Approach (ICD-10-PCS; 2020-06-27)
PROC: 5A1955Z Respiratory Ventilation, Greater than 96 Consecutive Hours (ICD-10-PCS; 2020-06-27)
PROC: 02HV33Z Insertion of Infusion Device into Superior Vena Cava, Percutaneous Approach (ICD-10-PCS; 2020-06-27)
PROC: 0BH17EZ Insertion of Endotracheal Airway into Trachea, Via Natural or Artificial Opening (ICD-10-PCS; 2020-07-03)
PROC: 0BH17EZ Insertion of Endotracheal Airway into Trachea, Via Natural or Artificial Opening (ICD-10-PCS; 2020-07-03)
PROC: XW033E5 Introduction of Remdesivir Anti-infective into Peripheral Vein, Percutaneous Approach, New Technology Group 5 (ICD-10-PCS; 2020-07-04)
DX: A41.89 Other specified sepsis (principal); R65.21 Severe sepsis with septic shock; U07.1 COVID-19; J96.01 Acute respiratory failure with hypoxia; I21.4 Non-ST elevation (NSTEMI) myocardial infarction; N17.0 Acute kidney failure with tubular necrosis; G93.41 Metabolic encephalopathy; J12.82 Pneumonia due to coronavirus disease 2019; E87.1 Hypo-osmolality and hyponatremia; D59.5 Paroxysmal nocturnal hemoglobinuria [Marchiafava-Micheli]; E78.5 Hyperlipidemia, unspecified; E88.09 Other disorders of plasma-protein metabolism, not elsewhere classified; N18.31 Chronic kidney disease, stage 3a; D63.8 Anemia in other chronic diseases classified elsewhere; E66.9 Obesity, unspecified; Z80.0 Family history of malignant neoplasm of digestive organs; Z85.038 Personal history of other malignant neoplasm of large intestine; Z82.49 Family history of ischemic heart disease and other diseases of the circulatory system; Z68.27 Body mass index [BMI] 27.0-27.9, adult; Z88.8 Allergy status to other drugs, medicaments and biological substances
CPT/HCPCS: 31500; 36415; 36430; 36556; 36600; 71045; 80048; 80053; 81001; 82570; 82728; 82805; 83010; 83615; 83735; 83880; 84300; 84484; 85007; 85025; 85027; 85045; 85379; 85610; 85730; 86141; 86850; 86880; 86900; 86901; 86920; 87040; 87070; 87081; 87086; 87205; 87426; 93306; 93970; 94002; 94003; 94640; 96361; 96365; 96367; 96375; 99291; C9113; G0378; J0330; J0696; J1100; J2250; J2704; J3490; J7060

== ENCOUNTER 2021-11-10 06:36 | Day surgery (SDC) | payer OTHER ==
[~2021-11-10] VITALS: Ht 172.7 cm; Wt 85.3 kg
[~2021-11-10 06:36] MED LIST changes: +ASPI-543 PO; -CELE100C82 PO; +HYDR-4902 PO; +IBUP800T27 PO; +PENI500T2 PO; +[UNRECOGNIZED DRUG - CODE] IV
[2021-11-10] MEDS ORDERED: LIDOCAINE 2%HCL (LOCAL ANESTH.) INJ 10ml MDV ONE (07:42)
[2021-11-10] MEDS ORDERED: IODIXANOL 320MG/ML 100ML BTL IV ONE ×2 (07:42→08:20)
[2021-11-10] MEDS ORDERED: VERAPAMIL 2.5MG/ML INJ 2ML VIAL IV ONE (07:44)
[2021-11-10] MEDS ORDERED: ANGIOMAX 250 MG VIAL IV ONE (07:44)
[2021-11-10] MEDS ORDERED: HEPARIN SODIUM (PORCINE) 5000 UNITS/ML 1ML VIAL ONE (07:44)
[2021-11-10] MEDS ORDERED: SODIUM CHL 0.9% 0 ML ONE (07:45)
[2021-11-10] MEDS ORDERED: fentaNYL CITRATE 100 MCG/2 ML VL ONE (07:45)
[2021-11-10] MEDS ORDERED: MIDAZOLAM HCL 2MG/2ML 2ml VIAL (1mg/ml) ONE (07:45)
== END 2021-11-10 10:51 | disposition home or self-care (01) ==
LOC: CATH 06:36
PROVIDERS: ATTEND Internal Medicine
DX: R94.39 Abnormal result of other cardiovascular function study (principal); I25.118 Atherosclerotic heart disease of native coronary artery with other forms of angina pectoris; I71.4 Abdominal aortic aneurysm, without rupture; I27.20 Pulmonary hypertension, unspecified; D59.5 Paroxysmal nocturnal hemoglobinuria [Marchiafava-Micheli]; M79.89 Other specified soft tissue disorders; F17.200 Nicotine dependence, unspecified, uncomplicated; Z80.0 Family history of malignant neoplasm of digestive organs; Z87.19 Personal history of other diseases of the digestive system; Z20.822 Contact with and (suspected) exposure to COVID-19
CPT/HCPCS: 93458; C1887; C1894; J1644; J2001; J2250; J3010; J7030; Q9967; U0003; 99152

== ENCOUNTER 2025-01-04 16:41 | Inpatient (IN) | payer OTHER ==
[2025-01-04] VITALS (11 sets, daily range): BP systolic 78–140; BP diastolic 40–61; PULSE 96–125; RESP 14–40; TEMP 98.5–99.9; O2SAT 95–100
[~2025-01-04] VITALS: Ht 172.7 cm; Wt 113.8 kg
[~2025-01-04 16:41] MED LIST changes: +IBUP-1456 PO; -IBUP800T27 PO; -SIMV-13 PO; +SIMV40TA18 PO
--- NOTE | 2025-01-04 16:56 | ED.PDOC ---
SOB-HPI HPI Comments HPI: Poor Historian. 79-year-old male brought in by ambulance from home for evaluation of one day history of shortness of breath with the associated nonproductive cough and generalized weakness. Patient was febrile at 101.3 prior to arrival. Patient states he feels this way when he misses his medication Ultomiris, Voydeya. Sepsis protocol was initiated. Per EMS, patient was hypoxic 92% at 2 L at home. Patient states that he receives blood transfusion which helped some with the his symptoms. Past Medical History: Paroxysmal Nocturnal Hemoglobinuria, hyperlipidemia, thyroid disease, Past Surgical History: Patient is on levothyroxine, simvastatin, diltiazem, aspirin, meloxicam REVIEW OF SYSTEMS: CONSTITUTIONAL: Denies acute: diaphoresis, HEAD: Denies acute: headache, photophobia Eyes: Denies acute: Double vision, vision loss, eye pain, eye discharge. EARS: Denies acute: tinnitus, hearing loss, ear discharge, ear pain, THROAT: Denies acute: sore throat, swelling, difficulty swallowing , pain with swallowing, change in voice. NECK: Denies acute: neck pain, neck swelling, stiff neck. HEART: Denies acute : chest pain, palpitations, LUNGS: Denies acute: wheezing, hemoptysis ABDOMEN: Denies acute: abdominal pain, Nausea, Vomiting, diarrhea, melena , hematemesis, hematochezia SKIN: Denies acute: rash, redness, lesions, itchiness. EXTREMITIES: Denies acute: calf pain, numbness, tingling, weakness, denies pain in extremity. Denies acute: Low back pain. Neuro: Denies acute: focal neurological deficit, motor or sensory focal neurological deficit, tremors, seizure like activity, confusion, dizziness, change in mental status, loss of bowel or bladder function, cauda equina like symptoms. : Denies acute: dysuria, hematuria, flank pain, increase in urinary frequency. PSYCH: Denies acute: hallucination, suicidal ideation, homicidal ideation. PHYSICAL EXAM: General: ---moderate----acute distress, awake and alert. Head: normocephalic, atraumatic. Neck: supple, trachea is midline, no swelling. Throat: Normal phonation. Eyes:, no erythema, no purulent discharge, no proptosis, no icterus. Heart: regular tachycardia in the setting of fever, no significant murmur appr eciated. Lungs: Mild respiratory distress, No wheezing, no rhonchi, no crackles. No stridors Clear to auscultation bilaterally. Abdomen: non tender to palpation, non distended, soft, no guarding, no rebound, + bowel sounds. Neuro: Awake, Alert, oriented to name, self, situation, follows commands GCS=15. Speech is normal. Skin: no petechia, no purpura, no cyanosis, slightly-pale, not jaundice. Lower extremities: --no - Pitting edema no deformity, no focal swelling, no calf TTP. Makes eye contact. moves all four extremities. Face: no apparent facial droop. ED COURSE: DISCLAIMER: This medical document was created using an electronic medical record system with voice recognition software and computerized dictation system. Although this document has been carefully reviewed, there might still be some phonetic and typographical errors. Occasional wrong-word or "sound-alike" substitutions may have occurred due to the inherent limitations of voice recognition software. These areas are purely typographical due to imperfections of the software programs and do not reflect any compromise in the patient's medical care. Please read the chart carefully and recognize, using context, where these substitutions have occurred. Time Seen by MD: 16:52 Reviewed notes: Medications, Allergies Information Source: Patient, Emergency Med Personnel Mode of Arrival: Ambulatory Past Medical History PAST MEDICAL HISTORY: Denies Surgical History: Hernia Repair Family History Family History: Reviewed,noncontributory to illness, No family hx of Cancer, No family hx of DM, No family hx of Heart odilia Social History Smoker: Non-Smoker Alcohol: Denies ETOH Use Drugs: Denies Drug Use Lives In: Home Was a procedure done? Was a procedure done?: Yes Sedation Sedation?: No Central Line Recorder of insertion practice: Customs Guard Occupation of general service technician: Attending Physician Indication: Hypotension, Volume resuscitation, Suspected infection Room prepared for procedure: Yes Customs Guard performed hand hygien: Yes Maximal sterile barrier precau: Mask/Eye shield, Sterile gown, Cap, Sterlie gloves, Large sterlie drape Skin Preparation: Chlorhexidine gluconate, Other (2ccs of 2% lidocaine) Skin preparation completely dr: Yes Insertion site: Right, Femoral Central line catheter type: Xjc-oeoowwzd-aly dialysis Number of lumens: 3 Post Assessment: Chest X-Ray, Proper placement Informed consent obtained: Yes Risks/benefits/alt described: Yes X-Ray, Labs, Meds, VS Vital Signs Date Time Temp Pulse Resp B/P (MAP) Pulse Ox O2 Delivery O2 Flow Rate FiO2 01/04/25 19:33 78/40 01/04/25 19:10 99.9 106 20 76/46 (56) 100 99.9 01/04/25 18:30 99.9 01/04/25 17:25 108 24 100 Non-Rebreather 10 N/A 01/04/25 17:23 101.8 01/04/25 17:01 125 01/04/25 17:00 101.8 126 28 88/41 (57) 98 101.8 01/04/25 16:55 101.8 126 26 156/69 (98) 99 101.8 Lab Test 01/04/25 18:27 01/04/25 17:22 Range/Units Troponin I High Sensitivity 31 22 </=54 ng/L White Blood Count 34.5 *H 4.4-10.8 10^3/uL Red Blood Count 3.29 L 4.5-5.90 10^6/uL Hemoglobin 9.8 L 13.5-17.5 g/dL Hematocrit 30.7 L 41.0-53.0 % Mean Corpuscular Volume 93.4 80.0-100.0 fL Mean Corpuscular Hemoglobin 29.7 28.0-32.0 pg Mean Corpuscular Hemoglobin Concent 31.8 L 32.0-36.0 g/dL Red Cell Distribution Width 17.5 H 11.8-14.3 % Platelet Count 253 140-450 10^3/uL Mean Platelet Volume 10.8 6.9-10.8 fL Neutrophils (%) (Auto) 37.0-80.0 % Lymphocytes (%) (Auto) 10.0-50.0 % Monocytes (%) (Auto) 0.0-12.0 % Basophils (%) (Auto) 0.0-2.0 % Neutrophils # (Auto) 1.6-8.6 10 ^3/uL Lymphocytes # (Auto) 0.4-5.4 10 ^3/uL Monocytes # (Auto) 0-1.3 10 ^3/uL Differential Total Cells Counted 100.0 100 Neutrophils % (Manual) 69 37.0-80.0 Band Neutrophils % (Manual) 7 Lymphocytes % (Manual) 1 L 10.0-50.0 Monocytes % (Manual) 23 H 0-12 Eosinophils % (Manual) 0 0-7 Basophils % (Manual) 0 0.0-2.0 Metamyelocytes % (manual) 0 Myelocytes % (Manual) 0 Promyelocytes % (Manual) 0 Blast Cells % (Manual) 0 Reactive Lymphocytes 0 Platelet Estimate Adequate Anisocytosis (manual) Slight Prothrombin Time 11.8 9.3-11.8 sec Prothrombin Time INR 1.13 0.9-1.15 Activated Partial Thromboplast Time 24.6 24.5-34.5 SEC Sodium Level 141 136-145 mmol/L Potassium Level 3.9 3.5-5.1 mmol/L Chloride Level 110 H 98-107 mmol/L Carbon Dioxide Level 19 L 20-31 mmol/L Anion Gap 12 5-15 Blood Urea Nitrogen 24 H 9-23 mg/dL Creatinine 1.09 0.700-1.30 mg/dL Glomerular Filtration Rate Calc 70 >90 mL/min BUN/Creatinine Ratio 22.0 H 10.0-20.0 Serum Glucose 77 74-106 mg/dL Lactic Acid Level 3.2 *H 0.4-2.0 mmol/L Calcium Level 8.6 L 8.7-10.4 mg/dL Total Bilirubin 0.9 0.2-1.0 mg/dL Aspartate Amino Transferase (AST) 33 13-40 U/L Alanine Aminotransferase (ALT) 16 7-40 U/L Alkaline Phosphatase 68 46-116 U/L Total Protein 5.7 5.7-8.2 g/dL Albumin 3.8 3.2-4.8 g/dL Current Medications Medications (Trade) Dose Ordered Sig/Sebastián Route Start Time Stop Time Status Last Admin Vancomycin HCl 200 ml @ 200 mls/hr ONCE ONCE IV 01/04/25 17:00 01/04/25 17:59 DC 01/04/25 17:00 Acetaminophen (Tylenol Tablet Or Capsule) 1,000 mg ONCE STAT PO 01/04/25 17:23 01/04/25 17:25 DC 01/04/25 17:23 Sodium Chloride 1,000 ml @ 1,000 mls/hr Q1H ONCE IV 01/04/25 18:15 01/04/25 19:14 DC 01/04/25 18:15 Sodium Chloride 3,000 ml @ 1,000 mls/hr Q3H ONCE IV 01/04/25 18:15 01/04/25 18:34 DC 01/04/25 18:20 Norepinephrine Bitartrate 250 ml @ 3.75 mls/hr Q24H IV 01/04/25 19:00 01/04/25 19:33 Sodium Chloride 1,000 ml @ 100 mls/hr Q10H IV 01/04/25 20:15 01/04/25 20:15 [place] [id number] Ph: [phone] DIAGNOSTIC IMAGING Diagnostic Imaging Report : [id number] Signed PATIENT: KIKO HESTER ACCT: [id number] UNIT: [id number] : 1945 LOC: ER ROOM / BED: / AGE / SEX: 79 / M ADM STATUS: REG ER SERVICE 53 ORDERING PHYSICIAN: LINUS GREGG DO PROCEDURE(s): CXRP - CHEST PORTABLE REASON: sob ORDER NUMBER(s): [id number], ACCESSION NUMBER(s): [id number] EXAM: XY CHEST PORTABLE TECHNIQUE: Single frontal chest radiograph CLINICAL HISTORY: sob COMPARISON: CHEST XRAY 1 VIEW on DOS: 07/07/20, CHEST XRAY 1 VIEW on DOS: 07/05/20, CHEST PORTABLE on DOS: 07/04/20 Findings/Impression: Frontal chest radiograph demonstrates no acute osseous or superficial soft tissue abnormalities. The trachea is midline. The cardiac silhouette and mediastinum are within normal limits. Right perihilar and left mid to lower lung field airspace opacities. No pneumothorax. ATED BY: KATHIA MARTEL DO DICTATED DATE/TIME: 01/04/251725 SIGNED BY: KATHIA MARTEL DO SIGNED DATE/TIME: 01/04/251725 CC: Images Reviewed?: Images reviewed and evaluated by ne SEPSIS Sepsis Screen Physician Orders Chest Portable (01/04/25 16:54) Accucheck (01/04/25 16:54) Blood Culture (01/04/25 16:54) Cefepime 1gm/ 50ml (Maxipime 1gm/50ml) (01/04/25 22:00) Notify Md If Map <65 Or Bp<90 (01/04/25 16:54) If Map<65 Start Vasopressor (01/04/25 16:54) Sepsis Reassesment After Fluid (01/04/25 17:54) Electrocardigram (01/04/25 17:04) Norepinephrine 8 Mg/250ml Kit (Levophed) (01/04/25 19:00) Abg W/ Co-Ox (01/04/25 20:15) *Consult / (01/04/25 20:15) * Infectious [place]- Dr. Escalera (01/04/25 20:15) Full Code (01/04/25 20:15) Cardiac Diet-2gna,Lofat,Lochol (01/05/25 Breakfast) Sodium Chloride 0.9% (01/04/25 20:15) Ipratropium Medneb (Atrovent Medneb) (01/05/25 00:00) Ondansetron Hcl (Zofran) (01/04/25 20:15) Morphine Sulfate Injection (01/04/25 20:15) Acetaminophen Tablet (Tylenol Tablet) (01/04/25 20:15) Pantoprazole (Protonix) (01/05/25 10:00) Hydrocodone-Acet 5/325mg Tab ([place] 5/32 (01/04/25 20:15) Respiratory Culture W/ Gs (01/04/25 20:15) Rapid Influenza A&B (01/04/25 20:15) Dvh Inhouse Covid19 (01/04/25 20:15) Basic Metabolic Panel (01/05/25 04:00) Basic Metabolic Panel (01/06/25 04:00) Basic Metabolic Panel (01/07/25 04:00) Complete Blood Count (01/05/25 05:00) Complete Blood Count (01/06/25 05:00) Complete Blood Count (01/07/25 05:00) Lactic Acid W/ Reflex Order (01/05/25 06:00) Lactic Acid W/ Reflex Order (01/05/25 14:00) Vital Signs Date Time Temp Pulse Resp B/P (MAP) Pulse Ox O2 Delivery O2 Flow Rate FiO2 01/04/25 19:33 78/40 01/04/25 19:10 99.9 106 20 76/46 (56) 100 99.9 01/04/25 18:30 99.9 01/04/25 17:25 108 24 100 Non-Rebreather 10 N/A 01/04/25 17:23 101.8 01/04/25 17:01 125 01/04/25 17:00 101.8 126 28 88/41 (57) 98 101.8 01/04/25 16:55 101.8 126 26 156/69 (98) 99 101.8 Laboratory Tests Test 01/04/25 17:22 Lactic Acid Level 3.2 mmol/L (0.4-2.0) *H White Blood Count 34.5 10^3/uL (4.4-10.8) *H Medications Medications Dose Ordered Sig/Sebastián Route Start Time Stop Time Status Last Admin Dose Admin Acetaminophen 1,000 mg ONCE STAT PO 01/04/25 17:23 01/04/25 17:25 DC 01/04/25 17:23 Norepinephrine Bitartrate 250 ml @ 3.75 mls/hr Q24H IV 01/04/25 19:00 01/04/25 19:33 Sodium Chloride 1,000 ml @ 100 mls/hr Q10H IV 01/04/25 20:15 01/04/25 20:15 Sodium Chloride 1,000 ml @ 1,000 mls/hr Q1H ONCE IV 01/04/25 18:15 01/04/25 19:14 DC 01/04/25 18:15 Sodium Chloride 3,000 ml @ 1,000 mls/hr Q3H ONCE IV 01/04/25 18:15 01/04/25 18:34 DC 01/04/25 18:20 Vancomycin HCl 200 ml @ 200 mls/hr ONCE ONCE IV 01/04/25 17:00 01/04/25 17:59 DC 01/04/25 17:00 Departure 1 Departure Time of Disposition: 20:16 Impression: Primary Impression: Sepsis Additional Impressions: Pneumonia Septic shock Leukocytosis Disposition: ADMITTED INPATIENT Admit to: ICU Condition: Serious Discharged With: Self I personally scribed for MARYSOLLINUS ESPITIA DO ([email or web address]) on 01/04/25 at 17:04. Electronically submitted by Maciej Grant ([email or web address]). I personally scribed for MARYSOLLINUS DO ([email or web address]) on 01/04/25 at 19:26. Electronically submitted by Maciej Grant ([email or web address]). I personally scribed for MARYSOLLINUS DO ([email or web address]) on 01/04/25 at 19:57. Electronically submitted by Maciej Grant ([email or web address]). I personally scribed for MARYSOLLINUS DO ([email or web address]) on 01/04/25 at 19:58. Electronically submitted by Maciej Grant ([email or web address]). I personally scribed for MARYSOLLINUS ESPITIA DO ([email or web address]) on 01/04/25 at 20:18. Electronically submitted by Maciej Grant ([email or web address]). I personally scribed for MARYSOLLINUS DO ([email or web address]) on 01/04/25 at 20:33. Electronically submitted by Maciej Grant ([email or web address]). I personally scribed for MARYSOLLINUS DO ([email or web address]) on 01/05/25 at 00:33. Electronically submitted by Job Irving ([email or web address]). LINUS GREGG DO Jan 04, 2025 16:56
[2025-01-04] MEDS: VANCOMYCIN 1GM/200ML PM 200 ML IV ONE (17:00)
[2025-01-04] MEDS: ACETAMINOPHEN 500 MG TAB or CAP PO STA (17:23)
--- NOTE | 2025-01-04 17:29 | DVH ---
EXAM: XY CHEST PORTABLE TECHNIQUE: Single frontal chest radiograph CLINICAL HISTORY: sob COMPARISON: CHEST XRAY 1 VIEW on DOS: 07/07/20, CHEST XRAY 1 VIEW on DOS: 07/05/20, CHEST PORTABLE on DO S: 07/04/20 Findings/Impression: Frontal chest radiograph demonstrates no acute osseous or superficial soft tissue abnormalities. The trachea is midline. The cardiac silhouette and mediastinum are within normal limits. Right perihilar and left mid to lower lung field airspace opacities. No pneumothorax.
[2025-01-04 17:49] LABS: Hematocrit 30.7 % (41.0-53.0); Hemoglobin 9.8 g/dL (13.5-17.5); Mean Corpuscular Hemoglobin 29.7 pg (28.0-32.0); Mean Corpuscular Volume 93.4 fL (80.0-100.0)
[2025-01-04 18:00] LABS: INR 1.13 (0.9-1.15); Partial Thromboplastin Time 24.6 SEC (24.5-34.5); Prothrombin Time 11.8 sec (9.3-11.8)
[2025-01-04 18:01] LABS: Alanine Aminotransferase 16 U/L (7-40); Albumin 3.8 g/dL (3.2-4.8); Alkaline Phosphatase 68 U/L (46-116); Anion Gap 12 (5-15); BUN/Creatinine Ratio 22.0 (10.0-20.0); Bilirubin, Total 0.9 mg/dL (0.2-1.0); Glucose 77 mg/dL (74-106); Potassium 3.9 mmol/L (3.5-5.1); Sodium 141 mmol/L (136-145); Total Protein 5.7 g/dL (5.7-8.2)
[2025-01-04 18:03] LABS: Blood Urea Nitrogen 24 mg/dL (9-23); Calcium 8.6 mg/dL (8.7-10.4); Carbon Dioxide 19 mmol/L (20-31); Chloride 110 mmol/L (98-107)
[2025-01-04 18:10] LABS: Lactic Acid w/Reflex 3.2 mmol/L (0.4-2.0)
[2025-01-04] MEDS: SODIUM CHLORIDE 0.9% 1,000 ML IV ONE (18:15)
[2025-01-04] MEDS: SODIUM CHLORIDE 0.9% 3,000 ML IV ONE (18:20)
[2025-01-04] MEDS: NOREPINEPHRINE 8 MG/250ML KIT 250 ML IV ONE (19:03)
[2025-01-04] MEDS: NOREPINEPHRINE 8 MG/250ML KIT 250 ML IV SCH (19:33)
[2025-01-04 19:37] LABS: Anisocytosis Slight; Total Cells Counted 100.0 (100)
[2025-01-04] MEDS ORDERED: MORPHINE SULFATE INJ 2 MG/ml SYRG IV PRN (20:15)
[2025-01-04] MEDS: SODIUM CHLORIDE 0.9% 1,000 ML IV SCH (20:15)
[2025-01-04] MEDS ORDERED: HYDROcodone-ACET 5/325MG TAB PO PRN (20:15)
[2025-01-04] MEDS ORDERED: ONDANSETRON HCL 4 MG/2 ML VIAL IV PRN (20:15)
[2025-01-04] MEDS ORDERED: ACETAMINOPHEN 325 MG TAB PO PRN (20:15)
[2025-01-04 20:51] LABS: Base Excess -9.5 mmol/L (-2.0-3.0)
[2025-01-04 21:22] LABS: INR 1.15 (0.9-1.15); Prothrombin Time 12.0 sec (9.3-11.8)
[2025-01-04 21:30] LABS: Urine Amorphous Crystal FEW /hpf (None Seen); Urine Protein, UAD TRACE (Negative)
[2025-01-04] MEDS: CEFEPIME 1GM/ 50ML 50 ML IV SCH (22:12)
[2025-01-04] MEDS: SODIUM BICARB 8.4% 50Meq/50ml SYR Vial IV ONE (22:24)
[2025-01-04] MEDS: MORPHINE SULFATE 4 MG/ML SYR/VIAL IV PRN (23:09)
--- NOTE | 2025-01-04 23:15 | DVHINCON2 ---
Date of service: Jan 04, 2025 Referring Physician Zita Beatty NP Reason for Consultation Acute hypoxic respiratory failure, pneumonia History of Present Illness A 79-year-old man with a history of paroxysmal nocturnal hemoglobinuria, hyperlipidemia, and thyroid disease who presents to ED today via EMS for evaluation of 1-day history of shortness of breath with associated nonproductive cough and generalized weakness. Patient was febrile at 101.3 prior to arrival. Patient states he feels this way when he misses his medication, Ultomiris or Voy matt. Sepsis protocol was initiated. Per EMS, patient was hypoxic at 92% on 2 L at home. Patient reports he receives blood transfusion which helps some with his symptoms. ED workup revealed WBC 34.5, Lactic 3.2, Troponin 22, 31. Chest x ray demonstrates right perihilar and left mid to lower lung field airspace opacities.No pneumothorax. Patient was started on Levophed drip in the ED for blood pressure support and admitted for further care. Pulmonary consultation is requested for evaluation and management of acute hypoxic respiratory failure and pneumonia. Review of Systems: 14-point review of systems negative unless otherwise noted above. Past Medical History: Paroxysmal nocturnal hemoglobinuria, hyperlipidemia, and thyroid disease Past Surgical History: None Medications: Reviewed. Allergies: Prednisone Family History: Colon cancer Myocardial infarction Hiatal hernia. Social History: Nonsmoker. No alcohol or illicit drug use. Family History: FH: colon cancer G8 MOTHER FH: myocardial infarction G8 FATHER Hiatal hernia G8 FATHER Allergies: Coded Allergies: Prednisone (Verified Allergy, Unknown, 11/07/21) Home Meds Reported Medications Hydrocodone-Acetaminophen (Hydrocodone Bitartrate/AC 5-325 mg) 1 Tab Tab, 1 TAB PO Q8HPRN PRN for BREAKTHROUGH PAIN, TAB 11/07/21 Ravulizumab-Cwvz (Ultomiris) 300 Mg/3 Ml Inj, 300 MG IV Q8 WEEKS for PNH, INJ 11/07/21 Ibuprofen (Ibuprofen) 800 Mg Tab, 800 MG PO Q6HP PRN for BREAKTHROUGH PAIN, MG 11/07/21 Aspirin (Aspir-Low) 81 Mg Tab, 81 MG PO DAILY for clot prevention, MG 11/07/21 Penicillin V Potassium (Veetids) 500 Mg Tab, 2 TAB PO DAILY for PNH, #40 TAB 11/07/21 Simvastatin (Simvastatin) 40 Mg Tab, 40 MG PO HS for HYPERLIPIDEMIA for 30 Days 08/13/19 Current Medications Current Medications Medications (Trade) Dose Ordered Sig/Sebastián Route PRN Reason Start Time Stop Time Status Last Admin Cefepime HCl 50 ml @ 12.5 mls/hr Q8HR IV 01/04/25 22:00 01/04/25 22:12 Acetaminophen (Tylenol Tablet Or Capsule) 1,000 mg ONCE STAT PO 01/04/25 17:23 01/04/25 17:25 DC 01/04/25 17:23 Norepinephrine Bitartrate 250 ml @ 3.75 mls/hr Q24H IV 01/04/25 19:00 01/04/25 19:33 Sodium Chloride 1,000 ml @ 100 mls/hr Q10H IV 01/04/25 20:15 01/04/25 20:15 Ipratropium [place] (Atrovent Medneb) 0.5 mg Q6HR NEB 01/05/25 00:00 Ondansetron HCl (Zofran) 4 mg Q6HPRN PRN IV NAUSEA / VOMITING 01/04/25 20:15 Morphine Sulfate 2 mg Q6HPRN PRN IV NAUSEA / VOMITING 01/04/25 20:15 UNV Acetaminophen (Tylenol Tablet) 650 mg Q6HPRN PRN PO PAIN SCALE 1-3 OR TEMP>100.4 01/04/25 20:15 Pantoprazole Sodium (Protonix) 40 mg DAILY IV 01/05/25 10:00 Acetaminophen/ Hydrocodone Bitart ([place] 5/325MG Tab) 1 tab Q6HPRN PRN PO PAIN SCALE 1 THRU 6 01/04/25 20:15 Enoxaparin Sodium (Lovenox) 40 mg DAILY SC 01/05/25 10:00 01/04/25 20:41 DC Morphine Sulfate 2 mg Q30MP PRN IV FOR CHEST PAIN 01/04/25 23:00 UNV Vital Signs Vital Signs Date Time Temp Pulse Resp B/P (MAP) Pulse Ox O2 Delivery O2 Flow Rate FiO2 01/04/25 22:38 108 01/04/25 21:43 99.9 20 78/40 100 15.0 100 99.9 01/04/25 17:25 Non-Rebreather Physical Exam Gen.: Patient lying in bed in no apparent distress. On supplemental oxygen. Head: Normocephalic, atraumatic. Eyes: EOMI/PERRLA. Ears: Normal hearing. Normal anatomy. Neck/trachea: Trachea midline, supple. Nose: Normal external anatomy. Mouth: Moist mucous membranes. Chest: Decreased air entry bilaterally. No wheezing or rhonchi. Cardiovascular: Positive S1, positive S2. Regular rate and rhythm. Abdomen: Positive bowel sounds in all 4 quadrants. Soft, non-tender, non- distended. : Deferred. Rectal: Deferred. Skin: Warm, dry. Intact. Extremities: 2+ radial pulses bilaterally. No lower extremity edema. Neuro: Awake, alert, oriented x3. No gross motor or sensory deficits. Cranial nerves II through XII intact. Gait not assessed. Labs/Diagnostic Data Labs Test 01/04/25 20:55 01/04/25 20:44 01/04/25 20:35 01/04/25 17:22 Range/Units Urine Color Yellow Yellow Urine Clarity Clear Clear Urine pH 5.0 5.0-9.0 Urine Specific [place] 1.019 1.001-1.035 Urine Protein Trace H Negative Urine Ketones Negative Negative Urine Blood Trace H Negative /uL Urine Nitrite Negative Negative Urine Bilirubin Negative Negative Urine Urobilinogen Normal Negative mg/dL Urine Leukocyte Esterase Negative Negative /uL Urine RBC 1 0 - 3 /hpf Urine Microscopic WBC 1 0-3 /HPF Urine Squamous Epithelial Cells Few <5 /hpf Urine Amorphous Crystals Few None Seen /hpf Urine Bacteria None seen None Seen /hpf Urine Hyaline Casts Few 0 - 2 /lpf Urine Mucus Few None Seen Urine Glucose Normal Normal mg/dL Blood Gas Specimen Type Arterial Blood Gas Sample Site Right radial Blood Gas Patient Temperature 37.0 Arterial Blood Date Drawn [id number] Arterial Blood pH 7.288 L 7.350-7.450 Arterial Blood Partial Pressure CO2 34.6 L 35.0-48.0 mmHg Arterial Blood Partial Pressure O2 120.3 H 83.0-108.0 mmHg Arterial Blood HCO3 16.2 L 21.0-28.0 mmol/L Arterial Blood Oxygen Saturation 97.8 94.0-98.0 % Arterial Blood Base Excess -9.5 L -2.0-3.0 mmol/L Arterial Blood Oxyhemoglobin 95.0 94.0-98.0 % Arterial Blood Carboxyhemoglobin 2.3 H 0.5-1.5 % Arterial Blood Methemoglobin 0.6 0.0-1.5 % Miki Test Yes Blood Gas Total Hemoglobin 10.80 L 13.5-17.5 g/dL Blood Gas Liter Flow 15.00 Blood Gas Modality Mask - nrb FiO2 % 100.0 Prothrombin Time 12.0 H 9.3-11.8 sec Prothrombin Time INR 1.15 0.9-1.15 Lactic Acid Level 3.5 *H 0.4-2.0 mmol/L Troponin I High Sensitivity 38 </=54 ng/L White Blood Count 34.5 *H 4.4-10.8 10^3/uL Red Blood Count 3.29 L 4.5-5.90 10^6/uL Hemoglobin 9.8 L 13.5-17.5 g/dL Hematocrit 30.7 L 41.0-53.0 % Mean Corpuscular Volume 93.4 80.0-100.0 fL Mean Corpuscular Hemoglobin 29.7 28.0-32.0 pg Mean Corpuscular Hemoglobin Concent 31.8 L 32.0-36.0 g/dL Red Cell Distribution Width 17.5 H 11.8-14.3 % Platelet Count 253 140-450 10^3/uL Mean Platelet Volume 10.8 6.9-10.8 fL Neutrophils (%) (Auto) 37.0-80.0 % Lymphocytes (%) (Auto) 10.0-50.0 % Monocytes (%) (Auto) 0.0-12.0 % Basophils (%) (Auto) 0.0-2.0 % Neutrophils # (Auto) 1.6-8.6 10 ^3/uL Lymphocytes # (Auto) 0.4-5.4 10 ^3/uL Monocytes # (Auto) 0-1.3 10 ^3/uL Differential Total Cells Counted 100.0 100 Neutrophils % (Manual) 69 37.0-80.0 Band Neutrophils % (Manual) 7 Lymphocytes % (Manual) 1 L 10.0-50.0 Monocytes % (Manual) 23 H 0-12 Eosinophils % (Manual) 0 0-7 Basophils % (Manual) 0 0.0-2.0 Metamyelocytes % (manual) 0 Myelocytes % (Manual) 0 Promyelocytes % (Manual) 0 Blast Cells % (Manual) 0 Reactive Lymphocytes 0 Platelet Estimate Adequate Anisocytosis (manual) Slight Activated Partial Thromboplast Time 24.6 24.5-34.5 SEC Sodium Level 141 136-145 mmol/L Potassium Level 3.9 3.5-5.1 mmol/L Chloride Level 110 H 98-107 mmol/L Carbon Dioxide Level 19 L 20-31 mmol/L Anion Gap 12 5-15 Blood Urea Nitrogen 24 H 9-23 mg/dL Creatinine 1.09 0.700-1.30 mg/dL Glomerular Filtration Rate Calc 70 >90 mL/min BUN/Creatinine Ratio 22.0 H 10.0-20.0 Serum Glucose 77 74-106 mg/dL Calcium Level 8.6 L 8.7-10.4 mg/dL Total Bilirubin 0.9 0.2-1.0 mg/dL Aspartate Amino Transferase (AST) 33 13-40 U/L Alanine Aminotransferase (ALT) 16 7-40 U/L Alkaline Phosphatase 68 46-116 U/L Total Protein 5.7 5.7-8.2 g/dL Albumin 3.8 3.2-4.8 g/dL Assessment Impression: Sepsis Acute hypoxic respiratory failure Dependence on supplemental oxygen Pneumonia. Obesity, BMI 38.1 Non adherence This note reflects my review of patient chart and discussion with RN and PROPOSAL DEVELOPMENT MANAGER for orders at 2250 on 01/04/2025. I was called for consultation by SAWYER Beatty. Pt was in respiratory distress. Plan as noted below. Plan: Supplemental oxygen, placed on 15 LPM nonrebreather Titrate to keep O2 sats above 92%. Taper O2 as tolerated. Start BIPAP 12/5 Titrate FIO2 to keep o2 sat above 92% ABG in 30 minutes. CXR reviewed, demonstrates right perihilar and left mid to lower lung field airspace opacities. No pneumothorax. ABG reviewed, notable for acidemia On Levophed for hemodynamic support Titrate to keep mean arterial pressure greater than 65 mmHg Bronchodilators Note, patient is allergic to prednisone. Antibiotics -cefepime, vancomycin IV fluids with NS at 100 ml/hr Follow up ID recommendations Follow up Hematology recommendations due to PNH Pain control Avoid oversedation Monitor renal function. Monitor electrolytes. Supplement as necessary. Monitor ins and outs. Monitor BMP, CBC, lactic acid levels Diet and lifestyle modifications for weight reduction Obesity - complicates all care DVT prophylaxis. Prognosis: Poor given patient's multiple co-morbidities and non-adherence. Condition: Critical Rest of plan per hospitalist and other consultants. A total of 35 minutes of critical care time was spent reviewing the patient record, examining the patient, making a diagnostic and therapeutic plan, discussing this plan with the medical personnel, following up on diagnostic studies and following the patient for clinical stability excluding any and all procedures. At least 50% of this time was spent in direct, [id number] contact. Thank you, SAWYER Beatty, for allowing me to participate in this patient's care. Further recommendations will depend on the patient's clinical course. Please do not hesitate to contact me if you have any questions or concerns. This medical document was created using an electronic medical record system with [employer] computerized dictation system. Although these documentations are being carefully reviewed, there may still be some phonetic and typographical changes. The errors are purely typographical, due to imperfection on the software program, and do not reflect any compromise in the patient's medical care. Plan discussed with: Other (RN, SAWYER Beatty) BULMARO MURPHY MD Jan 04, 2025 23:15
[2025-01-04] MEDS: IPRATROPIUM BROM 0.5 MG/2.5ML INH SOL NEB SCH (23:27)
[2025-01-04] MEDS ORDERED: SODIUM BICARB 8.4% 50Meq/50ml SYR Vial IV ONE (23:30)
[2025-01-05] VITALS: PULSE 56; RESP 40; O2SAT 98
[2025-01-05 00:15] VITALS: BP 86/44; PULSE 44; RESP 21
[2025-01-05] MEDS ORDERED: DOPamine 1600MCG/ML D5W 0 ML IV ONE (00:25)
[2025-01-05] MEDS ORDERED: ATROPINE SULF 1 MG/10ml SYR IV ONE (00:43)
--- NOTE | 2025-01-05 00:57 | DVHHP2 ---
Admitting Diagnosis: Sepsis, Pneumonia, Acute respiratory failure with hypoxia History of Present Illness History Source: RN Notes, MD Notes Exam Limitations: Clinical condition HPI Mr. Rashi Solitario 79-year-old male with a history of paroxysmal nocturnal hemoglobinuria, Hyperlipemia, thyroid disease brought in by ambulance from home for evaluation of one day history of shortness of breath with the associated n onproductive cough and generalized weakness. Patient was febrile at 101.3 prior to arrival. Patient states he feels this way when he misses his medication Ultomiris, Voydeya. Sepsis protocol was initiated. Per EMS, patient was hypoxic 92% at 2 L at home. Patient states that he receives blood transfusion which helped some with the his symptoms. I was consulted for medical management. Patient with WBC 34.5, Lactic 3.2, Troponin 22, 31, chest x ray Frontal chest radiograph demonstrates no acute osseous or superficial soft tissue abnormalities. The trachea is midline. The cardiac silhouette and mediastinum are within normal limits. Right perihilar and left mid to lower lung field airspace opacities.No pneumothorax.patient started on Levophed drip in the ED for blood pressure support. Patient admitted for further evaluation and treatment. Home Meds Reported Medications Hydrocodone-Acetaminophen (Hydrocodone Bitartrate/AC 5-325 mg) 1 Tab Tab, 1 TAB PO Q8HPRN PRN for BREAKTHROUGH PAIN, TAB 11/07/21 Ravulizumab-Cwvz (Ultomiris) 300 Mg/3 Ml Inj, 300 MG IV Q8 WEEKS for PNH, INJ 11/07/21 Ibuprofen (Ibuprofen) 800 Mg Tab, 800 MG PO Q6HP PRN for BREAKTHROUGH PAIN, MG 11/07/21 Aspirin (Aspir-Low) 81 Mg Tab, 81 MG PO DAILY for clot prevention, MG 11/07/21 Penicillin V Potassium (Veetids) 500 Mg Tab, 2 TAB PO DAILY for PNH, #40 TAB 11/07/21 Simvastatin (Simvastatin) 40 Mg Tab, 40 MG PO HS for HYPERLIPIDEMIA for 30 Days 08/13/19 Past Medical History Cardiac: Hyperlipidemia Pulmonary: No pertinent Hx Central Nervous System: No pertinent Hx GI: No pertinent Hx Hemotology/Oncology: No pertinent Hx Hepatobiliary: No pertinent Hx Psychiatric: No pertinent Hx Musculoskeletal: No pertinent Hx Rheumotologic: No pertinent Hx Infectious Disease: No peritnent Hx ENT: No pertinent Hx Renal/: No pertinent Hx Endocrine: Hypothyroidism Dermatology: No pertinent Hx Others Paroxysmal Nocturnal Hemoglobinuria Patient Family History: FH: colon cancer G8 MOTHER FH: myocardial infarction G8 FATHER Hiatal hernia G8 FATHER Review of Systems Constitutional: No symptom reported Ears, Nose, & Throat: No symptom reported Eyes: No symptom reported Pulmonary/Respiratory: Dyspnea, Cough Cardiovascular: No symptom reported Gastrointestinal: No symptom reported Genitourinary: No symptom reported Musculoskeletal: No symptom reported Skin: No symptom reported Psychiatric: No symptom reported Endocrine: No symptom reported Hemotologic/Lymphatic: No symptom reported H&P Exam Vital Signs Vital Signs Date Time Temp Pulse Resp B/P (MAP) Pulse Ox O2 Delivery O2 Flow Rate FiO2 01/05/25 00:00 152 01/04/25 23:09 39 96/46 01/04/25 22:55 98 01/04/25 22:55 Non-Rebreather 15 N/A 01/04/25 21:43 99.9 99.9 General Appeara: Well developed, Well nourished, Mild distress, Other (ill appearing) Head Exam: Normal inspection Neck Exam: Normal inspection, Non-tender, Normal alignment Eye Exam: bilateral eye Normal inspection, bilateral eye PERRL, bilateral eye EOMI Ear Exam: bilateral ear Auricle normal Nasal Exam: Normal inspection Mouth: Dry mouth Pulmonary/Respiratory: Normal breath sounds, Chest non-tender Cardiovascular/Chest: Normal inspection, Regular rate, Tachycardia Peripheral Pulses: 2+ dorsalis pedis (R), 2+ dorsalis pedis (L), 2+ Radial (R), 2+ Radial (L) Abdominal Exam: Normal bowel sounds, Soft HADOOP ANALYST Exam: Normal hearing, Normal speech, PERRL Neuro/Mental St: Alert Appearance: Other (ill appearing) SEPSIS Sepsis Screen Date sepsis recognized/suspect: Jan 04, 2025 Time Sepsis recognized/suspect: 1701 Recent Procedure: No On Antibiotic Therapy: No Respiratory Rate >20: Yes Heart Rate >90: Yes Temp<36 C (96.8 F) or >38.3 C: Yes SBP <90 or MAP <65 mmHG: Yes New Acute Mental Status Change: No Is the patient on CPAP, BIPAP,: No Physician Orders Chest Portable (01/04/25 16:54) Accucheck (01/04/25 16:54) Blood Culture (01/04/25 16:54) Cefepime 1gm/ 50ml (Maxipime 1gm/50ml) (01/04/25 22:00) Notify Md If Map <65 Or Bp<90 (01/04/25 16:54) If Map<65 Start Vasopressor (01/04/25 16:54) Sepsis Reassesment After Fluid (01/04/25 17:54) Electrocardigram (01/04/25 17:04) Norepinephrine 8 Mg/250ml Kit (Levophed) (01/04/25 19:00) Abg W/ Co-Ox (01/04/25 20:15) *Consult / (01/04/25 20:15) * Infectious [place]- Dr. Escalera (01/04/25 20:15) Full Code (01/04/25 20:15) Cardiac Diet-2gna,Lofat,Lochol (01/05/25 Breakfast) Sodium Chloride 0.9% (01/04/25 20:15) Ipratropium Medneb (Atrovent Medneb) (01/05/25 00:00) Ondansetron Hcl (Zofran) (01/04/25 20:15) Morphine Sulfate Injection (01/04/25 20:15) Acetaminophen Tablet (Tylenol Tablet) (01/04/25 20:15) Pantoprazole (Protonix) (01/05/25 10:00) Hydrocodone-Acet 5/325mg Tab ([place] 5/32 (01/04/25 20:15) Respiratory Culture W/ Gs (01/04/25 20:15) Rapid Influenza A&B (01/04/25 20:15) [facility] Inhouse Covid19 (01/04/25 20:15) Basic Metabolic Panel (01/05/25 04:00) Basic Metabolic Panel (01/06/25 04:00) Basic Metabolic Panel (01/07/25 04:00) Complete Blood Count (01/05/25 05:00) Complete Blood Count (01/06/25 05:00) Complete Blood Count (01/07/25 05:00) Lactic Acid W/ Reflex Order (01/05/25 06:00) Lactic Acid W/ Reflex Order (01/05/25 14:00) Admit (01/04/25 20:23) Stat Ekg For Chest Pain (01/04/25 20:23) Notify Of Changes From Base (01/04/25 20:23) Reserves Clerk For 24 Hours (01/04/25 20:23) Emergency Dysrhythmia Protocol (01/04/25 20:23) Rhythm Strips Once Every Shift (01/04/25 20:23) Oxygen By Nasal Cannula (01/04/25 20:23) * Hematology/Oncology Consult (01/04/25 20:25) Sequential Compression Device (01/04/25 20:41) Electrocardigram (01/04/25 22:36) Morphine Sulfate Injection (01/04/25 23:00) BIPAP (01/04/25 23:27) Abg W/ Co-Ox (01/05/25 00:09) Ct Angio Chest Contrast (01/05/25 00:21) Troponin-I Hs (01/05/25 06:00) Troponin-I Hs (01/05/25 12:00) Echo 2d Mode Cardiac Dop (01/05/25 00:25) * Cardiology Consult (01/05/25 00:25) Vital Signs Date Time Temp Pulse Resp B/P (MAP) Pulse Ox O2 Delivery O2 Flow Rate FiO2 01/05/25 00:00 152 01/04/25 23:09 110 39 96/46 01/04/25 22:55 110 20 98 01/04/25 22:55 107 22 100 01/04/25 22:55 98 Non-Rebreather 15 N/A 01/04/25 22:55 98 Non-Rebreather 15.0 01/04/25 22:38 108 01/04/25 21:43 99.9 106 20 78/40 100 15.0 100 99.9 01/04/25 19:33 78/40 01/04/25 19:10 99.9 106 20 76/46 (56) 100 99.9 01/04/25 18:30 99.9 01/04/25 17:25 108 24 100 Non-Rebreather 10 N/A 01/04/25 17:23 101.8 01/04/25 17:01 125 01/04/25 17:00 101.8 126 28 88/41 (57) 98 101.8 01/04/25 16:55 101.8 126 26 156/69 (98) 99 101.8 Laboratory Tests Test 01/04/25 17:22 01/04/25 20:35 Lactic Acid Level 3.2 mmol/L (0.4-2.0) *H 3.5 mmol/L (0.4-2.0) *H White Blood Count 34.5 10^3/uL (4.4-10.8) *H Medications Medications Dose Ordered Sig/Sebastián Route Start Time Stop Time Status Last Admin Dose Admin Acetaminophen 1,000 mg ONCE STAT PO 01/04/25 17:23 01/04/25 17:25 DC 01/04/25 17:23 1,000 MG Cefepime HCl 50 ml @ 12.5 mls/hr Q8HR IV 01/04/25 22:00 01/04/25 22:12 12.5 MLS/HR Ipratropium [place] 0.5 mg Q6HR NEB 01/05/25 00:00 01/04/25 23:27 0.5 MG Morphine Sulfate 2 mg Q30MP PRN IV 01/04/25 23:00 01/04/25 23:09 2 MG Norepinephrine Bitartrate 250 ml @ 3.75 mls/hr Q24H IV 01/04/25 19:00 01/04/25 19:33 3.75 MLS/HR Sodium Bicarbonate 50 ml ONCE ONCE IV 01/04/25 22:00 01/04/25 22:12 DC 01/04/25 22:24 50 ML Sodium Chloride 1,000 ml @ 100 mls/hr Q10H IV 01/04/25 20:15 01/04/25 20:15 100 MLS/HR Sodium Chloride 1,000 ml @ 1,000 mls/hr Q1H ONCE IV 01/04/25 18:15 01/04/25 19:14 DC 01/04/25 18:15 1,000 MLS/HR Sodium Chloride 3,000 ml @ 1,000 mls/hr Q3H ONCE IV 01/04/25 18:15 01/04/25 18:34 DC 01/04/25 18:20 1,000 MLS/HR Vancomycin HCl 200 ml @ 200 mls/hr ONCE ONCE IV 01/04/25 17:00 01/04/25 17:59 DC 01/04/25 17:00 200 MLS/HR Labs/Xrays Labs Test 01/04/25 23:25 01/04/25 20:55 01/04/25 20:44 01/04/25 20:35 Range/Units Troponin I High Sensitivity 64 *H </=54 ng/L Urine Color Yellow Yellow Urine Clarity Clear Clear Urine pH 5.0 5.0-9.0 Urine Specific [place] 1.019 1.001-1.035 Urine Protein Trace H Negative Urine Ketones Negative Negative Urine Blood Trace H Negative /uL Urine Nitrite Negative Negative Urine Bilirubin Negative Negative Urine Urobilinogen Normal Negative mg/dL Urine Leukocyte Esterase Negative Negative /uL Urine RBC 1 0 - 3 /hpf Urine Microscopic WBC 1 0-3 /HPF Urine Squamous Epithelial Cells Few <5 /hpf Urine Amorphous Crystals Few None Seen /hpf Urine Bacteria None seen None Seen /hpf Urine Hyaline Casts Few 0 - 2 /lpf Urine Mucus Few None Seen Urine Glucose Normal Normal mg/dL Blood Gas Specimen Type Arterial Blood Gas Sample Site Right radial Blood Gas Patient Temperature 37.0 Arterial Blood Date Drawn [id number] Arterial Blood pH 7.288 L 7.350-7.450 Arterial Blood Partial Pressure CO2 34.6 L 35.0-48.0 mmHg Arterial Blood Partial Pressure O2 120.3 H 83.0-108.0 mmHg Arterial Blood HCO3 16.2 L 21.0-28.0 mmol/L Arterial Blood Oxygen Saturation 97.8 94.0-98.0 % Arterial Blood Base Excess -9.5 L -2.0-3.0 mmol/L Arterial Blood Oxyhemoglobin 95.0 94.0-98.0 % Arterial Blood Carboxyhemoglobin 2.3 H 0.5-1.5 % Arterial Blood Methemoglobin 0.6 0.0-1.5 % Miki Test Yes Blood Gas Total Hemoglobin 10.80 L 13.5-17.5 g/dL Blood Gas Liter Flow 15.00 Blood Gas Modality Mask - nrb FiO2 % 100.0 Prothrombin Time 12.0 H 9.3-11.8 sec Prothrombin Time INR 1.15 0.9-1.15 D-Dimer, Quantitative 2.19 H 0.0-0.49 mg/L FEU Lactic Acid Level 3.5 *H 0.4-2.0 mmol/L Test 01/04/25 17:22 Range/Units White Blood Count 34.5 *H 4.4-10.8 10^3/uL Red Blood Count 3.29 L 4.5-5.90 10^6/uL Hemoglobin 9.8 L 13.5-17.5 g/dL Hematocrit 30.7 L 41.0-53.0 % Mean Corpuscular Volume 93.4 80.0-100.0 fL Mean Corpuscular Hemoglobin 29.7 28.0-32.0 pg Mean Corpuscular Hemoglobin Concent 31.8 L 32.0-36.0 g/dL Red Cell Distribution Width 17.5 H 11.8-14.3 % Platelet Count 253 140-450 10^3/uL Mean Platelet Volume 10.8 6.9-10.8 fL Neutrophils (%) (Auto) 37.0-80.0 % Lymphocytes (%) (Auto) 10.0-50.0 % Monocytes (%) (Auto) 0.0-12.0 % Basophils (%) (Auto) 0.0-2.0 % Neutrophils # (Auto) 1.6-8.6 10 ^3/uL Lymphocytes # (Auto) 0.4-5.4 10 ^3/uL Monocytes # (Auto) 0-1.3 10 ^3/uL Differential Total Cells Counted 100.0 100 Neutrophils % (Manual) 69 37.0-80.0 Band Neutrophils % (Manual) 7 Lymphocytes % (Manual) 1 L 10.0-50.0 Monocytes % (Manual) 23 H 0-12 Eosinophils % (Manual) 0 0-7 Basophils % (Manual) 0 0.0-2.0 Metamyelocytes % (manual) 0 Myelocytes % (Manual) 0 Promyelocytes % (Manual) 0 Blast Cells % (Manual) 0 Reactive Lymphocytes 0 Platelet Estimate Adequate Anisocytosis (manual) Slight Activated Partial Thromboplast Time 24.6 24.5-34.5 SEC Sodium Level 141 136-145 mmol/L Potassium Level 3.9 3.5-5.1 mmol/L Chloride Level 110 H 98-107 mmol/L Carbon Dioxide Level 19 L 20-31 mmol/L Anion Gap 12 5-15 Blood Urea Nitrogen 24 H 9-23 mg/dL Creatinine 1.09 0.700-1.30 mg/dL Glomerular Filtration Rate Calc 70 >90 mL/min BUN/Creatinine Ratio 22.0 H 10.0-20.0 Serum Glucose 77 74-106 mg/dL Calcium Level 8.6 L 8.7-10.4 mg/dL Total Bilirubin 0.9 0.2-1.0 mg/dL Aspartate Amino Transferase (AST) 33 13-40 U/L Alanine Aminotransferase (ALT) 16 7-40 U/L Alkaline Phosphatase 68 46-116 U/L Total Protein 5.7 5.7-8.2 g/dL Albumin 3.8 3.2-4.8 g/dL Assessment/Plan Problem List: (1) Sepsis (2) Pneumonia (3) Leukocytosis (4) Septic shock (5) Acute respiratory failure Plan This is a 79 yo male with known history of paroxysmal nocturnal hemoglobinuria, hyperlipidemia, thyroid disease who presents to the hospital with shortness of breath, generalized weakness, fevers, cough. Patient found to have 1. Sepsis 2. Acute respiratory failure with hypoxia 3. Pneumonia 4. hx of PNH Plan Patient admitted to ICU Pulmonology consultation, serial ABG's, Bronchodilators, continue supplemental oxygen as needed to keep 02 saturations above 92 % Patient with chest pain in ED, obtain Cardiology consultation , serial troponin levels, D dimer ordered, CTA chest with IV contrast follow results Infectious Disease consultation, BC x2, Influenza A&B, COVID PCR, Sputum Culture, IV antibiotic, IV fluids Hematology consultation for PNH management recommendations Continue Vasopressors as needed for optimal blood pressure support Monitor BMP, CBC, Lactic levels Patient allergic to steroid Prednisone Prognosis: Poor given patient's multiple co-morbidities. Condition: Critical Discussed care plan with patient nurse Cat CISSE. Addendum: I was called patient went into cardiac arrest Code Blue was called. Informed by Patient nurse Cat CISSE , Patient with no successful attempts of resuscitation. Plan discussed with: Other Code Visit Code Visit Total Time (mins): 45 Additional Comments Additional Comments Additional Comments Patient's chart is reviewed and discussed with the nurse practitioner. Patient is seen and evaluated and admitted by nurse practitioner to the ICU in critical condition. Patient apparently went into cardiac arrest and resuscitative measures were unsuccessful and in the ICU. I agree with the nurse practitioner's evaluation, documentation, assessment and care plan as outlined. CRISTINA CORBIN Jan 05, 2025 00:57 KARLEY BROOKS MD Jan 06, 2025 17:06
--- NOTE | 2025-01-05 04:22 | ECG ---
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
--- NOTE | 2025-01-05 04:37 | RESUS ---
FIORDALIZA SCHILLING ASSESSSMENT History of Events History of Events: Pt admitted 01/04/25 for sepsis, pneumonia, and hypoxia. Per primary RN, pt placed on BiPAP with observed paul heart rate in the 40s. Atropine 1mg pushed and pulses lost. CPR initiated and FIORDALIZA SCHILLING called. Initial Information Date: Jan 05, 2025 Time: 00:24 Location of Arrest: ER Arrest Witnessed: Yes CPR started initial time: 00:24 CPR started by whom: Hospital Staff Last seen well: 0020 Pre-Hospital Care: Pre-Code Care (inpatient) Type of arrest: Cardiac, Respiratory, Adult, Witnessed Spontaneous Respirations: No Pulse Present: No Monitoring: ECG, Pulse Oximetry, Telemetry Crash Cart Opened and Supplies: Yes Airway Ventilation Breathing at Onset: Assisted Oxygen Delivery Method: Ambu-Bag Time of first Assisted Ventila: 00:25 Artificial Ventilation: Bag/Mask Intubation Time: 00:38 Intubation Size: 8.0 cuffed Intubated by: Dr Moran Intubation Attempts: 1 Intubated orally: Yes Intubated Nasaly: No Tube secured at: 22 (cm @ lip) Cricoid pressure done: Yes CO2 indicator used: Yes Confirmation: Exhaled CO2 Suctioning (Oral/Tracheal): Yes Comments: Pt had heavy pink, frothy secretions in airway for intubation Circulation Circulation #1: Time: 00:24 Pulse Rate (adult): 0 Blood Pressure Systolic: 0 Blood Pressure Diastolic: 0 Temperature (Fahrenheit): 98.9 (F; rectal) Circulation Comment: PEA Circulation #2: Time: 00:26 Pulse Rate (adult): 0 Blood Pressure Systolic: 0 Blood Pressure Diastolic: 0 Circulation Comment: PEA Circulation #3: Time: 00:28 Pulse Rate (adult): 0 Blood Pressure Systolic: 0 Blood Pressure Diastolic: 0 Circulation Comment: PEA Circulation #4: Time: 00:30 Pulse Rate (adult): 0 Blood Pressure Systolic: 0 Blood Pressure Diastolic: 0 Circulation Comment: PEA Circulation #5: Time: 00:32 Pulse Rate (adult): 0 Blood Pressure Systolic: 0 Blood Pressure Diastolic: 0 Circulation Comment: PEA Circulation #6: Time: 00:34 Pulse Rate (adult): 0 Blood Pressure Systolic: 0 Blood Pressure Diastolic: 0 Circulation Comment: PEA Circulation #7: Time: 00:36 Pulse Rate (adult): 0 Blood Pressure Systolic: 0 Blood Pressure Diastolic: 0 Circulation Comment: Asystole Circulation #8: Time: 00:38 Pulse Rate (adult): 0 Blood Pressure Systolic: 0 Blood Pressure Diastolic: 0 Circulation Comment: Asystole Circulation #9: Time: 00:40 Pulse Rate (adult): 0 Blood Pressure Systolic: 0 Blood Pressure Diastolic: 0 Circulation Comment: Asystole Circulation #10: Time: 00:42 Pulse Rate (adult): 0 Blood Pressure Systolic: 0 Blood Pressure Diastolic: 0 Circulation Comment: Asystole Circulation #11: Time: 00:44 Pulse Rate (adult): 0 Blood Pressure Systolic: 0 Blood Pressure Diastolic: 0 Circulation Comment: Asystole; TOD Procedure - IV Procedure - IV #1: IV Side: Left IV Location: Antecubital IV Catheter Type: Saline Lock IV Placed: In Hospital IV Gauge: 20 IV Line Care: Saline Flush Comment IV initiated prior to code Procedure - IV #2: IV Side: Right IV Location: [place] Posterior IV Catheter Type: Saline Lock IV Placed: In Hospital IV Gauge: 18 IV Line Care: Saline Flush Comment IV initiated prior to code Medications & Response Medications and Responses #1: Medication Time: 00:24 ADULT Medications Given ADULT: Epinephrine 1 mg Route of Administration: IV Heart Rate: 0 Blood Pressure Systolic: 0 Blood Pressure Diastolic: 0 Respiratory Rate: 0 Medications and Responses #2: Medication Time: 00:26 ADULT Medications Given ADULT: Sodium Bacarbinate 50 meq Route of Administration: IV Heart Rate: 0 Blood Pressure Systolic: 0 Blood Pressure Diastolic: 0 Respiratory Rate: 0 Medications and Responses #3: Medication Time: 00:27 ADULT Medications Given ADULT: Calcium Chloride 10 mL Route of Administration: IV Heart Rate: 0 Blood Pressure Systolic: 0 Blood Pressure Diastolic: 0 Respiratory Rate: 0 Medications and Responses #4: Medication Time: 00:28 ADULT Medications Given ADULT: Epinephrine 1 mg Route of Administration: IV Heart Rate: 0 Blood Pressure Systolic: 0 Blood Pressure Diastolic: 0 Respiratory Rate: 0 Medications and Responses #5: Medication Time: 00:32 ADULT Medications Given ADULT: Epinephrine 1 mg Route of Administration: IV Heart Rate: 0 Blood Pressure Systolic: 0 Blood Pressure Diastolic: 0 Respiratory Rate: 0 Medications and Responses #6: Medication Time: 00:34 ADULT Medications Given ADULT: Atropine 1 mg Route of Administration: IV Medication Comment: Medication verbal order by Dr Moran Heart Rate: 0 Blood Pressure Systolic: 0 Blood Pressure Diastolic: 0 Respiratory Rate: 0 Medications and Responses #7: Medication Time: 00:36 ADULT Medications Given ADULT: Epinephrine 1 mg Route of Administration: IV Heart Rate: 0 Blood Pressure Systolic: 0 Blood Pressure Diastolic: 0 Respiratory Rate: 0 Medications and Responses #8: Medication Time: 00:37 ADULT Medications Given ADULT: Sodium Bacarbinate 50 meq Route of Administration: IV Heart Rate: 0 Blood Pressure Systolic: 0 Blood Pressure Diastolic: 0 Respiratory Rate: 0 Medications and Responses #9: Medication Time: 00:40 ADULT Medications Given ADULT: Epinephrine 1 mg Route of Administration: IV Heart Rate: 0 Blood Pressure Systolic: 0 Blood Pressure Diastolic: 0 Respiratory Rate: 0 Procedure - Central Venous Cat Central venous catheter site: Rt Femoral Comment: TLC placed prior to code Nurses Notes Katelynn Coma Scale Eye Opening: None (1) [place] Coma Scale Verbal: None (1) [place] Coma Scale Motor: None (1) [place] Total: 3 Pupil Reaction: Sluggish Bedside Blood Glucose: 81 Time Code Ended Time Code Ended: 00:44 Patient pronounced by: Dr Parikh - Resident Time patient pronounced: 00:44 Family notified: Yes Code Team Present: Dr Moran - MARICHUY MD; Dr Parikh - Resident; Ren Finley RN - ER Charge; Michelle Bach RN - Book Coverer; Isamar Macias RN - ICU Charge; Cat Erazo RN - Primary RN; Jodie Sargent RT; Francesca España RN; Yas Finley, RT; Starla Sargent, ERT; Gretchen Tay, ERT; LOU Cruz Ashley Jan 05, 2025 04:37
--- NOTE | 2025-01-05 07:21 | ECG ---
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
[2025-01-05] MEDS ORDERED: PANTOPRAZOLE 40 MG/10 ML VIAL INJ IV SCH (10:00)
[2025-01-05] MEDS ORDERED: ENOXAPARIN SOD 40 MG/0.4 ML SYRINGE SC SCH (10:00)
== END 2025-01-05 00:44 | DRG 871 ==
LOC: ER 16:41 → EDBD 16:41 → OVERFLOW 20:23
PROVIDERS: ADMIT Nurse Practitioner Family; ATTEND Nurse Practitioner Family
PROC: 06HY33Z Insertion of Infusion Device into Lower Vein, Percutaneous Approach (ICD-10-PCS; principal; 2025-01-04)
PROC: 5A12012 Performance of Cardiac Output, Single, Manual (ICD-10-PCS; 2025-01-04)
PROC: 5A09357 Assistance with Respiratory Ventilation, Less than 24 Consecutive Hours, Continuous Positive Airway Pressure (ICD-10-PCS; 2025-01-04)
DX: A41.9 Sepsis, unspecified organism (principal); J18.9 Pneumonia, unspecified organism; J96.01 Acute respiratory failure with hypoxia; R65.21 Severe sepsis with septic shock; E03.9 Hypothyroidism, unspecified; E66.9 Obesity, unspecified; I46.9 Cardiac arrest, cause unspecified; E78.5 Hyperlipidemia, unspecified; Z68.38 Body mass index [BMI] 38.0-38.9, adult; D59.5 Paroxysmal nocturnal hemoglobinuria [Marchiafava-Micheli]; Z82.49 Family history of ischemic heart disease and other diseases of the circulatory system; Z99.81 Dependence on supplemental oxygen; Z80.0 Family history of malignant neoplasm of digestive organs
CPT/HCPCS: 36415; 36556; 36600; 71045; 80053; 81001; 82805; 83605; 84484; 85007; 85027; 85379; 85610; 85730; 86850; 86900; 86901; 87040; 92950; 93005; 94640; 94660; 96365; 96375; G0378